=== PATIENT | female | born 1970 | race Caucasian/White ===

== ENCOUNTER → 2024-03-11 | Outpatient (CLI) | payer BC, SELFPAY | END | disposition home or self-care (01) | PROVIDERS: PCP Nurse Practitioner Family; Referring Provider Nurse Practitioner Family; Visit Provider Nurse Practitioner Family | DX: Z12.31 Encounter for screening mammogram for malignant neoplasm of breast (principal); R60.0 Localized edema; E04.9 Nontoxic goiter, unspecified | CPT/HCPCS: 76536; 76882; 77063; 77067 ==

== ENCOUNTER 2024-05-04 06:14 | Day surgery (SDC) | payer BC, SELFPAY ==
--- NOTE | 2024-05-01 21:57 | PAT.ANE_ITS ---
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 When Was Last Pacemaker Check QUESTION #4 FULL TEXT: You/Your Family Experience fever (hyperthermia) with Anesthesia Last Oral Intake Last Oral intake: Last Oral Intake NPO since Meds taken in AM with sips of water? Meds patient instructed to take am of surgery PONV PONV - bench patternmaker metal: PONV - bench patternmaker metal Female Yes 05/01/24 09:10 HX of Motion Sickness No 05/01/24 09:10 HX of N/V After Surgery No 05/01/24 09:10 Non-Smoker Yes 05/01/24 09:10 Duration of Surgery greater No 05/01/24 09:10 than 60 minutes Number of Risk Factors 2 05/01/24 09:10 PONV Score Moderate Risk 05/01/24 09:10 Height & Weight Height & Weight: Anesthesia: Height & Weight Height 5 ft 9 in 02/26/24 10:13 Respiratory Assessment Respiratory Assessment - bench patternmaker metal: Respiratory Tract Infection Hx - bench patternmaker metal Hx Respiratory Tract Infection No 05/01/24 09:10 STOP Sleep Apnea STOP Sleep Apnea - bench patternmaker metal: STOP Sleep Apnea - bench patternmaker metal Hx Hypertension Yes: NO MEDS FOR 3 YRS 05/01/24 09:10 Hx Sleep Apnea No 05/01/24 09:10 CPAP BIPAP Do you snore loudly (louder Yes 05/01/24 09:10 than talking or can be heard Do you often feel tired/ No 05/01/24 09:10 fatigued/ sleepy during daytime? Has anyone observed you stop No 05/01/24 09:10 breathing during sleep? STOP Results Positive 05/01/24 09:10 QUESTION #5 FULL TEXT : Do you snore loudly (louder than talking or can be heard through closed doors)? Tobacco Use History Tobacco Use History - bench patternmaker metal: Tobacco Use History - bench patternmaker metal Tobacco Use Smoking Status Never smoker 05/01/24 09:10 Hx Tobacco Use No 05/01/24 09:10 Years Smoking Packs Smoked per Day Smoking Cessation Date was within the last 15 years Hx Smoking Cessation Date Hx Smoking Cessation Counseling Hematologic Medial History Hematologic Hx - bench patternmaker metal: Hematologic Medical Hx - documentation coordinator Hx of Blood Transfusion No 05/01/24 09:10 Hx of Transfusion in last 3 No 05/01/24 09:10 Months Date of Last Transfusion (if within last 3 months) Ever experience any problems No 05/01/24 09:10 with transfusion(s)? Specify any problems Hx of Preganancy in last 3 No 05/01/24 09:10 Months Nurse Filling Out Transfusion DSCHRIBER 05/01/24 09:10 & Questions: Date: 05/01/24 05/01/24 09:10 Time: 09:12 05/01/24 09:10 Patient unable to answer at this time (ie. confused, unrespo /Reproduction History /Reproductive History - bench patternmaker metal: /Reproductive Hx- bench patternmaker metal Hx Now No 05/01/24 09:10 Gestational Age (in weeks): EDC: Hx Hx Para Hx Section SAB No 05/01/24 09:10 [facility] Medical History (Updated 05/01/24 @ 09:18 by Fiona Greene) Wears glasses Post-menopausal Anxiety Diabetes Arthritis High cholesterol Easy bruising Migraine headache Restless legs Non-smoker Shortness of breath on exertion History of edema History of stress test History of CHF (congestive heart failure) Hypertension Hx of cyst of breast Hyperlipidemia PCOS (polycystic ovarian syndrome) Thyroid goiter Asthma Depression Home Medications ?Medication ?Instructions ?Recorded ?Last Taken ?Type albuterol sulfate 90 mcg/actuation 2 puff inhalation Q4H PRN 02/26/24 Unknown History aerosol inhaler shortness of breath or wheezing furosemide 40 mg tablet (Lasix) 40 mg PO QDAY 02/26/24 Unknown History ibuprofen 200 mg tablet 400 mg PO BID 02/26/24 Unknown History ropinirole 1 mg tablet 1 mg PO BID 02/26/24 Unknown History sertraline 100 mg tablet (Zoloft) 150 mg PO QHS 02/26/24 Unknown History Allergy/AdvReac Type Severity Reaction Status Date / Time niacin Allergy Hives Verified 05/01/24 09:09 adhesive AdvReac Rash Verified 05/01/24 09:09 Family History (Updated 02/26/24 @ 10:07 by Margaret Spencer) Brother Stomach cancer Esophageal cancer Surgical History (Updated 05/01/24 @ 09:18 by Fiona Greene) Hx of oral surgery Hx of tonsillectomy Social History (Updated 02/26/24 @ 10:08 by Margaret Spencer) household members: other details: Roommate current occupational status: employed Smoking Status: Never smoker substance use type: does not use Audit: Pertinent Findings Pertinent Findings Stress test pertinent findings: April 27, 2020. Ejection fraction 70%. Normal left ventricular systolic function. Echo (EF%) pertinent findings: April 27, 2020. Dobutamine stress echo is normal. Ejection fraction is 70%. Normal left ventricular systolic function Recommendation Anesthesia Recommendation Anesthesia recommendation: OPTIMIZED for anesthesia
[2024-05-04] VITALS (7 sets, daily range): BP systolic 105–146; BP diastolic 70–89; PULSE 69–90; RESP 16; TEMP 36–37.1; O2SAT 93–97; BMI 43.5
--- NOTE | 2024-05-04 07:02 | PRE.ANES_ITS ---
ASA Classification* ASA Classification ASA Classification: 3 Assessment & Plan Anesthesia* Anesthesia Assessment Anesthesia Assessment: Discussed sedation and/or anesthesia options, risks, benefits, and alternatives with patient/parents/legal guardian/POA. Questions invited. The patient/parents/legal guardian/POA seems to understand and agrees to proceed with anesthesia plan. Reviewed the physical assessment, medical history, allergy history and patient home medications list prior to surgery/procedure/anesthetic and documented any changes. Performed airway and anesthesia risk assessments. 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 When Was Last Pacemaker Check QUESTION #4 FULL TEXT: You/Your Family Experience fever (hyperthermia) with Anesthesia Last Oral Intake Last Oral intake: Last Oral Intake NPO since 03:30 05/04/24 06:38 Meds taken in AM with sips of water? 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 Female Yes 05/01/24 09:10 HX of Motion Sickness No 05/01/24 09:10 HX of N/V After Surgery No 05/01/24 09:10 Non-Smoker Yes 05/01/24 09:10 Duration of Surgery greater No 05/01/24 09:10 than 60 minutes Number of Risk Factors 2 05/01/24 09:10 PONV Score Moderate Risk 05/01/24 09:10 Height & Weight Height & Weight: Anesthesia: Height & Weight Height 5 ft 9 in 05/04/24 06:38 Weight: 133.81 kg 05/04/24 06:38 Body Mass Index (BMI) 43.5 05/04/24 06:38 Respiratory Assessment Respiratory Assessment - bow making machine operator: Respiratory Tract Infection Hx - bow making machine operator Hx Respiratory Tract Infection No 05/01/24 09:10 STOP Sleep Apnea STOP Sleep Apnea - bow making machine operator: STOP Sleep Apnea - bow making machine operator Hx Hypertension Yes: NO MEDS FOR 3 YRS 05/01/24 09:10 Hx Sleep Apnea No 05/01/24 09:10 CPAP BIPAP Do you snore loudly (louder Yes 05/01/24 09:10 than talking or can be heard Do you often feel tired/ No 05/01/24 09:10 fatigued/ sleepy during daytime? Has anyone observed you stop No 05/01/24 09:10 breathing during sleep? STOP Results Positive 05/01/24 09:10 QUESTION #5 FULL TEXT : Do you snore loudly (louder than talking or can be heard through closed doors)? 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 Specify any problems Hx of Preganancy in last 3 No 05/01/24 09:10 Months Nurse Filling Out Transfusion DSCHRIBER 05/01/24 09:10 & Questions: Date: 05/01/24 05/01/24 09:10 Time: 09:12 05/01/24 09:10 Patient unable to answer at this time (ie. confused, unrespo /Reproduction History /Reproductive History - bow making machine operator: /Reproductive Hx- bow making machine operator Hx Now No 05/01/24 09:10 Gestational Age (in weeks): EDC: Hx Hx Para Hx Section SAB No 05/01/24 09:10 PFSH Medical History Wears glasses Post-menopausal Anxiety Diabetes Arthritis High cholesterol Easy bruising Migraine headache Restless legs Non-smoker Shortness of breath on exertion History of edema History of stress test History of CHF (congestive heart failure) Hypertension Hx of cyst of breast Hyperlipidemia PCOS (polycystic ovarian syndrome) Thyroid goiter Asthma Depression Home Medications ?Medication ?Instructions ?Recorded ?Last Taken ?Type albuterol sulfate 90 mcg/actuation 2 puff inhalation Q4H PRN 02/26/24 Unknown History aerosol inhaler shortness of breath or wheezing furosemide 40 mg tablet (Lasix) 40 mg PO QDAY 02/26/24 05/03/24 History ibuprofen 200 mg tablet 400 mg PO BID 02/26/24 Unknown History ropinirole 1 mg tablet 1 mg PO BID 02/26/24 Unknown History sertraline 100 mg tablet (Zoloft) 150 mg PO QHS 02/26/24 Unknown History Allergy/AdvReac Type Severity Reaction Status Date / Time niacin Allergy Hives Verified 05/04/24 06:38 adhesive AdvReac Rash Verified 05/04/24 06:38 Family History Brother Stomach cancer Esophageal cancer Surgical History Hx of oral surgery Hx of tonsillectomy Social History household members: other details: Roommate current occupational status: employed Smoking Status: Never smoker substance use type: does not use Review of Systems (Anesthesia) ROS Narrative System reviewed and no additional complaints, except as documented.
--- NOTE | 2024-05-04 07:14 | HP.PCM_ITS ---
[facility] - General General Date of Admission: 05/04/24 Date of Service: 05/04/24 Chief Complaint: Screening colonoscopy [facility] Narrative MARYBEL MCKINNEY, is a 54 F who presents today for screening colonoscopy. She is never had a colonoscopy in the past. She does have a family history of stomach cancer. She has no personal history of any cancer. She has no current complaints at this time. REPLACED BY [facility] Medical History Wears glasses Post-menopausal Anxiety Diabetes Arthritis High cholesterol Easy bruising Migraine headache Restless legs Non-smoker Shortness of breath on exertion History of edema History of stress test History of CHF (congestive heart failure) Hypertension Hx of cyst of breast Hyperlipidemia PCOS (polycystic ovarian syndrome) Thyroid goiter Asthma Depression Home Medications ?Medication ?Instructions ?Recorded ?Last Taken ?Type albuterol sulfate 90 mcg/actuation 2 puff inhalation Q4H PRN 02/26/24 Unknown History aerosol inhaler shortness of breath or wheezing furosemide 40 mg tablet (Lasix) 40 mg PO QDAY 02/26/24 05/03/24 History ibuprofen 200 mg tablet 400 mg PO BID 02/26/24 Unknown History ropinirole 1 mg tablet 1 mg PO BID 02/26/24 Unknown History sertraline 100 mg tablet (Zoloft) 150 mg PO QHS 02/26/24 Unknown History Allergy/AdvReac Type Severity Reaction Status Date / Time niacin Allergy Hives Verified 05/04/24 06:38 adhesive AdvReac Rash Verified 05/04/24 06:38 Family History Brother Stomach cancer Esophageal cancer Surgical History Hx of oral surgery Hx of tonsillectomy Social History household members: other details: Roommate current occupational status: employed Smoking Status: Never smoker substance use type: does not use ROS Constitutional Constitutional: Denies fatigue, fever(s), poor appetite, weight gain or weight loss Gastrointestinal Gastrointestinal: Denies belching, bloating, change in bowel habits, change in stool character, chewing difficulty, coffee ground emesis, constipation, cramping, diarrhea, dyspepsia, dysphagia, early satiety, excessive flatus, fecal incontinence, heartburn, hematemesis, hematochezia, hemorrhoids, loose stools, melena, nausea, odynophagia, rectal bleeding, tenesmus, vomiting or weight changes Vital Signs Vital Signs Vital Signs: 05/04/24 06:38 05/04/24 06:38 05/04/24 07:02 Temperature 97 F L 97 F L Temperature Source Temporal Pulse Rate 90 90 Respiratory Rate 16 16 Respiratory Pattern Normal Blood Pressure 146/89 H 146/89 H Blood Pressure Mean 108 Blood Pressure Source Monitor Blood Pressure Position Semi-Fowlers Blood Pressure Location Right Arm Pulse Ox 95 95 Oxygen Delivery Method Room Air Weight Weight: 295 lb Body Mass Index (BMI) 43.5 Physical Exam Const alert, oriented x3, no apparent distress and healthy appearing General Appearance: cooperative GI normal to inspection, nondistended, normoactive bowel sounds, soft to palpation, non-tender and non-distended Percussion: normal to percussion Rectal Exam: deferred Assessment & Plan Assessment/Plan (1) Encounter for screening for malignant neoplasm of colon: PLAN: She was explained alternatives, benefits, risk including not withstanding bleeding, infection, sepsis, perforation, need for emergent urgent . She will have an ASA of 3.
[2024-05-04 07:22] LABS: Bedside Glucose 135 mg/dL (74-106)
--- NOTE | 2024-05-04 07:30 | COLBX_PTH ---
PATIENT: MARYBEL MCKINNEY LOC: EN U#:[id number] AGE/SX: 54/F ROOM: RE05/04/[address]: Dr. Jose Abdi DO : 1970 BED: DIS: 05/04/2024 SPEC #: [id number] RECD: 05/04/24 10:05 STATUS: SUGEY KEN #: [id number] CARA: 05/04/24 07:[address]: Jose Abdi DEPT: SURGICAL PATHOLOGY RECD BY: Shona Masters ENTERED: 05/04/24 10:47 SP TYPE: COLON BX OTHR DR: Lavonne Olsen, AD COMPOSITOR-C Tissues: A - COLON BIOPSY B - Transverse colon C - SPLENIC FLEXURE Procedures: Surgery Specimen Level IV HEADER OPERATION: Colonoscopy with polypectomy, biopsy PRE-OP DIAGNOSIS: Encounter for screening for neoplasm of colon TISSUE SUBMITTED: A- Hepatic flexure polyp, B- Transverse colon polyp, C- Splenic flexure polyp MICROSCOPIC DIAGNOSIS A. Hepatic flexure polyp, polypectomy: Tubular adenoma. B. Transverse colon polyp, polypectomy: Fragments of tubular adenoma. C. Splenic flexure polyp, polypectomy: Hyperplastic polyp. 05/05/2024 MICROSCOPIC DESCRIPTION Slides are reviewed. GROSS DESCRIPTION A. Received in fixative is one container labeled with the patient's name and designated Hepatic flexure polyp. The specimen consists of one irregular fragment of light barber soft tissue that measures 0.5 x 0.6 x 0.3 cm. The specimen is totally submitted in one cassette. B. Received in fixative is one container labeled with the patient's name and designated Transverse colon polyp. The specimen consists of multiple irregular fragments of light barber soft tissue that in aggregate measure 0.5 x 0.3 x 0.1 cm. The specimen is totally submitted in one cassette. C. Received in fixative is one container labeled with the patient's name and designated Splenic flexure polyp. The specimen consists of two irregular fragments of light barber soft tissue that in aggregate measure 0.5 x 0.4 x 0.2 cm. The specimen is totally submitted in one cassette. 05/04/2024 TC:1 CPT:62804k3
--- NOTE | 2024-05-04 08:24 | OP.COLON_ITS ---
Patient Name: Anaid Nicolas Procedure Date: 05/04/2024 7:53 AM Date of : 1970 Age: 54 Procedure: Colonoscopy Indications: Screening for colorectal malignant neoplasm Providers: Jose Abdi DO Referring MD: Jose Abdi DO Medicines: Monitored Anesthesia Care Patient Profile: This is a 54 year old female. Refer to note in patient chart for documentation of history and physical. Last Colonoscopy: none. The patient's first colonoscopy is today. Complications: No immediate complications. Procedure: Pre-Anesthesia Assessment: - Prior to the procedure, a History and Physical was performed, and patient medications and allergies were reviewed. The patient is competent. The risks and benefits of the procedure and the sedation options and risks were discussed with the patient. All questions were answered and informed consent was obtained. Patient identification and proposed procedure were verified by the physician in the pre-procedure area. Mental Status Examination: alert and oriented. Airway Examination: normal oropharyngeal airway and neck mobility. Respiratory Examination: clear to auscultation. CV Examination: normal. Prophylactic Antibiotics: The patient does not require prophylactic antibiotics. Prior Anticoagulants: The patient has taken no anticoagulant or antiplatelet agents except for NSAID medication. ASA Grade Assessment: II - A patient with mild systemic disease. After reviewing the risks and benefits, the patient was deemed in satisfactory condition to undergo the procedure. The anesthesia plan was to use monitored anesthesia care (MAC). Immediately prior to administration of medications, the patient was re-assessed for adequacy to receive sedatives. The heart rate, respiratory rate, oxygen saturations, blood pressure, adequacy of pulmonary ventilation, and response to care were monitored throughout the procedure. The physical status of the patient was re-assessed after the procedure. After I obtained informed consent, the scope was passed under direct vision. Throughout the procedure, the patient's blood pressure, pulse, and oxygen saturations were monitored continuously. The pediatric colonoscope was introduced through the anus and advanced to the cecum, identified by appendiceal orifice and ileocecal valve. The colonoscopy was performed without difficulty. The patient tolerated the procedure well. The quality of the bowel preparation was adequate. The ileocecal valve, appendiceal orifice, and rectum were photographed. Scope In: 7:59:51 AM Scope Withdrawal Time 0 hours 9 minutes 37 seconds Scope Out: 8:19:38 AM Total Procedure Duration Time 0 hours 19 minutes 47 seconds Findings: The perianal and digital rectal examinations were normal. Multiple small-mouthed diverticula were found in the recto-sigmoid colon, sigmoid colon, descending colon and splenic flexure. Two sessile polyps were found in the transverse colon and hepatic flexure. The polyps were 1 to 2 mm in size. These polyps were removed with a cold snare. Resection and retrieval were complete. Verification of patient identification for the specimen was done. Estimated blood loss was minimal. A 4 mm polyp was found in the splenic flexure. The polyp was sessile. The polyp was removed with a cold biopsy forceps. Resection and retrieval were complete. Verification of patient identification for the specimen was done. Estimated blood loss was minimal. The exam was otherwise without abnormality on direct and retroflexion views. Impression: - Diverticulosis in the recto-sigmoid colon, in the sigmoid colon, in the descending colon and at the splenic flexure. - Two 1 to 2 mm polyps in the transverse colon and at the hepatic flexure, removed with a cold snare. Resected and retrieved. - One 4 mm polyp at the splenic flexure, removed with a cold biopsy forceps. Resected and retrieved. - The examination was otherwise normal on direct and retroflexion views. Recommendation: - Discharge patient to home. - Resume previous diet. - Continue present medications. - Await pathology results. - Repeat colonoscopy in 5 years for surveillance. Procedure Code(s): --- Professional --- 35398, Colonoscopy, flexible; with removal of tumor(s), polyp(s), or other lesion(s) by snare technique 85145, 59, Colonoscopy, flexible; with biopsy, single or multiple CPT copyright 2021 [employer]. All rights reserved. The codes documented in this report are preliminary and upon certified medical records coder review may be revised to meet current compliance requirements. Jose Abdi DO 05/04/2024 8:23:51 AM This report has been signed electronically. Number of Addenda: 0 Note Initiated On: 05/04/2024 7:53 AM
--- NOTE | 2024-05-04 08:24 | OP.CCLET_ITS ---
05/04/2024 Taniya Hinton Re : Colonoscopy procedure for Anaid Nicolas Dear Raúl This procedure was performed on Saturday, May 04, 2024. My impressions and recommendations are as follows: Impressions : - Diverticulosis in the recto-sigmoid colon, in the sigmoid colon, in the descending colon and at the splenic flexure. - Two 1 to 2 mm polyps in the transverse colon and at the hepatic flexure, removed with a cold snare. Resected and retrieved. - One 4 mm polyp at the splenic flexure, removed with a cold biopsy forceps. Resected and retrieved. - The examination was otherwise normal on direct and retroflexion views. Recommendations : - Discharge patient to home. - Resume previous diet. - Continue present medications. - Await pathology results. - Repeat colonoscopy in 5 years for surveillance. My findings are described in the full procedure note, which is enclosed. If I can be of further assistance, please feel free to contact me at . Sincerely, Jose Abdi, 05/04/2024 8:23:51 AM This report has been signed electronically.
--- NOTE | 2024-05-04 08:29 | PCM.POST.ANE ---
Anesthesia: Postop Eval I Current Vital Signs Temperature: 98.7 F Pulse Rate: 74 Blood Pressure: 107/87 Respiratory Rate: 16 Pulse Ox: 97 Oxygen Delivery Method: Room Air Assessment Airway patent: Yes Spontaneous unlabored respirations: Yes Mental status: Awake and Calm nausea: No Vomiting: No Anesthesia Complication: No Fluid Hydration Crystalloid volume administer (ml): 75 Total IV fluid infused: 75 Progress Note Anesthesia document: Postop Eval 1 completed: Yes
--- NOTE | 2024-05-04 08:50 | PCM.POSTANE2 ---
Anesthesia Postop Eval I Sum Postop Eval Completion status Anesthesia document: Postop Eval 1 completed: Yes Anesthesia Postop Eval I Summary Anesthesia Postop Eval I Summary: Anesthesia Postop Eval I: Assessment Summary Airway patent Yes 05/04/24 08:30 [email or web address] Spontaneous unlabored Yes 05/04/24 08:30 [email or web address] respirations Mental status Awake,Calm 05/04/24 08:30 [email or web address] nausea No 05/04/24 08:30 [email or web address] Vomiting No 05/04/24 08:30 [email or web address] Anesthesia Postop Eval I: Fluid Summary Crystalloid volume administer 75 05/04/24 08:30 [email or web address] (ml) Colloids volume administered ( ml) Blood Product volume administered (ml) Total IV fluid infused 75 05/04/24 08:30 [email or web address] Anesthesia Postop Eval I: Summary Notes Anesthesia Complication No 05/04/24 08:30 [email or web address] Anesthesia Complication Comment: Post-operative progress note Anesthesia: Postop Eval II Evaluation Mental status: Awake Pain Level: 0 nausea: No Vomiting: No
== END 2024-05-04 09:13 | disposition home or self-care (01) ==
LOC: EN 06:15 → AC 06:16
PROVIDERS: PCP Nurse Practitioner Family; Referring Provider Nurse Practitioner Family; Visit Provider Internal Medicine Gastroenterology
PROC: 0DJD8ZZ Inspection of Lower Intestinal Tract, Via Natural or Artificial Opening Endoscopic (ICD-10-PCS; CPT 45378; principal; 2024-05-04 07:25)
DX: Z12.11 Encounter for screening for malignant neoplasm of colon (principal); I11.0 Hypertensive heart disease with heart failure; I50.9 Heart failure, unspecified; E11.9 Type 2 diabetes mellitus without complications; D12.3 Benign neoplasm of transverse colon; Z80.0 Family history of malignant neoplasm of digestive organs; E78.00 Pure hypercholesterolemia, unspecified; K57.30 Diverticulosis of large intestine without perforation or abscess without bleeding; J45.909 Unspecified asthma, uncomplicated; Z79.899 Other long term (current) drug therapy
CPT/HCPCS: 45385; 45380

== ENCOUNTER 2024-07-23 14:28 | Inpatient (IN) | payer BC, SELFPAY ==
[2024-07-23] VITALS (7 sets, daily range): BP systolic 111–152; BP diastolic 61–76; PULSE 103–117; RESP 18–26; TEMP 37.6–39.2; O2SAT 95–99; BMI 46.3; BMI 45.6
--- NOTE | 2024-07-23 15:01 | EDS_ITS ---
HPI History of Present Illness Chief Complaint: Wound Narrative Narrative: Patient is a 54-year-old female with past medical history diabetes, hypercholesteremia, CHF, PCOS, depression who presented to the emergency department with complaint of lower abdominal wound on the left side. States that on Saturday she noted a small area of discomfort and swelling she states that on Saturday she was able to squeeze it and obtain a small amount of pus however she states that by today her symptoms have progressed and noted that she is in extreme pain. Patient states that she had a similar instance happen on her right shoulder where she went to [facility] for this she states and states that they drained this in the emergency department gave her dose of IV antibiotics and sent her on Keflex Bactrim and it healed on its own from that point. Patient states that she has no known injuries to this area states that she does not give herself injections or any thing of this nature. [facility] Medical History Congestive heart failure (CHF) Wears glasses Post-menopausal Anxiety Diabetes Arthritis High cholesterol Easy bruising Migraine headache Restless legs Non-smoker Shortness of breath on exertion History of edema History of stress test History of CHF (congestive heart failure) Hypertension Hx of cyst of breast Hyperlipidemia PCOS (polycystic ovarian syndrome) Thyroid goiter Asthma Depression Home Medications ?Medication ?Instructions ?Recorded ?Last Taken ?Type albuterol sulfate 90 mcg/actuation 2 puff inhalation Q 4H PRN 02/26/24 07/22/24 History aerosol inhaler shortness of breath or wheez ing furosemide 40 mg tablet (Lasix) 40 mg PO QDAY 02/26/24 07/23/24 History ibuprofen 200 mg tablet 400 mg PO BID 02/26/2407/23 History ropinirole 1 mg tablet 1 mg PO BID 02/26/24 Unknown History sertraline 100 mg tablet (Zoloft) 150 mg PO QHS 07/22/24 History Allergy/AdvReac Type Severity Reaction Status Date / Time niacin Allergy Hives Verified 07/23/24 15:44 adhesive AdvReac Rash Verified 07/23/24 15:44 Family History (Updated 07/23/24 @ 20:[address] Denice Moreno MD) Brother Stomach cancer Esophageal cancer Mother Heart disease CAD (coronary artery disease) Kidney disease Father CAD (coronary artery disease) Heart disease Hypertension Myocardial infarction Ruptured abdominal aortic aneurysm Other Diabetes Surgical History Hx of oral surgery Hx of tonsillectomy Social History (Updated 07/23/24 @ 20:[address] Denice Moreno MD) household members: other details: Roommate current occupational status: employed Smoking Status: Never smoker alcohol intake: never substance use type: does not use ROS ROS ED ROS Narrative Constitutional: Denies fevers, chills, headaches, lightness, dizziness Abdomen: Complains of abdominal discomfort near the wound and nausea denies vomiting or diarrhea : Denies urinary symptoms Neurological: Denies numbness, weakness, tingling Skin: Complains of abdominal wound in the left lower abdomen EXAM Physical Exam Narrative Exam Narrative: General: Patient was lying in bed rest comfortably did not appear to be acute distress Head: Atraumatic, normocephalic Eyes: PERRL bilaterally, EOMI bilateral, no conjunctival injection noted Neck: Soft, supple, trachea midline Cardiovascular: Patient tachycardic with regular rhythm no murmurs gallops rubs noted Respiratory: Clear to auscultation bilaterally Abdomen: Tenderness to palpation in the left lower quadrant where the wound is noted, no rebound or guarding on exam this does not extend down into her groin region no concern for Allen's gangrene Extremities: +5/5 strength of the bilateral upper and lower extremities Neurological: Patient follow commands that she was at [facility] year is 2024 Skin: Patient has surrounding erythema noted in the left lower quadrant no purulent drainage noted in the center of the wound is a small black dot. Const Vital Signs: 07/23/24 14:29 07/23/24 15:41 07/23/24 16:25 Temperature 99.6 F H 100.2 F H 100.9 F H Temperature Source Temporal Oral Oral Pulse Rate 117 H 115 H 104 H Respiratory Rate 24 H 24 H 24 H Blood Pressure 152/71 H 144/76 H 145/70 H Blood Pressure Mean 98 98 95 Pulse Ox 99 95 98 Oxygen Delivery Method Room Air Room Air 07/23/24 18:23 Temperature 102.5 F H Temperature Source Oral Pulse Rate 109 H Respiratory Rate 24 H Blood Pressure 112/75 Blood Pressure Mean 87 Pulse Ox 97 Oxygen Delivery Method Room Air MDM MDM MDM Narrative Medical decision making narrative: Patient is a 54-year-old female who presented to the emergency department with a chief complaint of left lower abdominal wound. On the differential diagnose includes but not limited to abscess, cellulitis. Patient be given 30 cc/kg bolus of IV fluids however this will be based on ideal body weight as she has a BMI of greater than 30 this was ordered at 1459. Patient be given vancomycin and Zosyn. This was ordered at 1459. .. Patient CBC was reviewed and was significant for leukocytosis of 20,000, hemoglobin stable 13, platelet count normal at 255. Patient INR is 1, PT of 13.8. Patient sodium normal 136, potassium normal 4.1, creatinine normal at 0.83 patient lactic acid elevated 2.1, AST and ALT were 17 and 13 respectively. Patient's urinalysis was reviewed and a microscopic exam is pending however low suspicion for infection based on result thus far. Patient CT abdomen pelvis with IV contrast showed cutaneous assume continuous thickening and stranding along the visualized left lower abdominal wall compatible with cellulitis no abscess noted. Mild hepatomegaly with diffuse hepatic steatosis moderate splenomegaly noted. Simple appearing bilateral ovarian cysts recommended pelvic ultrasound in 6 to 8 weeks to evaluate for stability/resolution. On reevaluation the patient she is still tachycardic she is now febrile which she will be given a gram of Tylenol for. Given her history also diabetes do believe the patient will warrant admission for IV antibiotics will discuss case with hospitalist. Patient test with hospitalist Dr. Moreno who accept patient for admission. Patient was notified is agreeable this plan all course concerns answered. Lab Data Labs: Laboratory Results - last 24 hr 07/23/24 07/23/24 15:26 16:05 WBC 20.7 H RBC 4.65 Hgb 13.0 Hct 37.7 MCV 81.1 MCH 28.0 MCHC 34.5 RDW Std Deviation 44.2 H RDW Coeff of Sia 15.0 H Plt Count 255 MPV 10.0 Immature Gran % (Auto) 0.700 Neut % (Auto) 82.5 H Lymph % (Auto) 6.6 L [place] % (Auto) 8.1 Eos % (Auto) 1.6 Baso % (Auto) 0.5 Absolute Neuts (auto) 17.0 H Absolute Lymphs (auto) 1.36 Nucleated RBC % 0 [address] Review May foll Atypical Lymphocytes 2+ PT 13.8 INR 1.0 APTT 38.0 H Sodium 136 Potassium 4.1 Chloride 99 Carbon Dioxide 22.6 Anion Gap 14 BUN 12 Creatinine 0.83 Estim Creat Clear Calc 115.92 Est GFR (MDRD) Non-Af 85 BUN/Creatinine Ratio 13.9 Glucose 135 H Lactic Acid 2.1 H Calcium 9.4 Total Bilirubin 0.46 AST 17 ALT 13 Alkaline Phosphatase 97 Total Protein 7.7 Albumin 4.3 Globulin 3.4 Albumin/Globulin Ratio 1.2 Urine Color Yellow Urine Clarity Sl. Cloudy Urine pH 7.0 Ur Specific [place] 1.005 Urine Protein 30 H Urine Glucose (UA) Normal Urine Ketones Negative Urine Occult Blood Negative Urine Nitrite Negative Urine Bilirubin Negative Urine Urobilinogen Normal Ur Leukocyte Esterase 25 H Urine RBC 0-5 SEEN Urine WBC 5-10 SEEN Ur Squamous Epith Cells 0-5 SEEN Urine Bacteria 1+ Urine Mucus 0 SEEN Radiography Diagnostic Testing: Clinical Impression(s) from Imaging Studies Abdomen/Pelvis CT 07/23/24 16:40 IMPRESSION: 1. Cutaneous and subcutaneous thickening and stranding along the visualized left lower abdominal wall, compatible with cellulitis. No abscess within the visualized field of view. 2. Mild hepatomegaly with diffuse hepatic steatosis. 3. Moderate splenomegaly. 4. Simple appearing bilateral ovarian cysts. Recommend pelvic ultrasound in 6-8 weeks to evaluate for stability/resolution. Reading Location: [id number] Discharge Plan Dx/Rx/DC Orders Clinical Impression: Abdominal wall cellulitis, Acidosis, lactic, History of diabetes mellitus Disposition Disposition: Acute Care [facility] Discharge Date/Time: 07/23/24 19:51
[2024-07-23] MEDS: 0.9% Normal Saline (1000mL) 1,000 ML 999 ML IV ×3 (15:33→17:35)
[2024-07-23] MEDS: Ondansetron 4 MG/2 ML Vial IV (15:33)
[2024-07-23] MEDS: Morphine 4 MG/ML Syringe IV (15:34)
[2024-07-23] MEDS: Piperacil/Tazobactam 4.5 GM in 0.9% Normal Saline (100mL MB+) 100 ML IV (15:36)
[2024-07-23 15:38] LABS: Absolute Lymphocyte Count 1.36 X10^3/uL (0.83-4.51); Basophil% 0.5 % (0-1); Eosinophil# 0.34 X10^3/uL; Eosinophils% 1.6 % (0-5); Hematocrit 37.7 % (37-47); Lymphocyte # 1.36 X10^3/ul (0.83-4.51); Lymphocyte % 6.6 % (19-41); Mean Corp Hgb Conc 34.5 g/dL (32-36); Mean Corpuscular Volume 81.1 fL (81-99); Monocyte# 1.67 X10^3/uL; Monocyte% 8.1 % (0-10); NRBC Flagged by Analyzer 0 % (0-5); Neutrophil # 17.03 X10^3/uL (2.7-7.7); Neutrophil % 82.5 % (47-70); POSITIVE DIFFERENTIAL YES; Platelet Count 255 K/mm3 (150-450); RBC Distribution Width SD 44.2 fl (35.1-43.9); Red Blood Count 4.65 M/mm3 (4.2-5.4); White Blood Count 20.7 K/mm3 (4.4-11.0)
[2024-07-23 15:48] LABS: Prothrombin Time (Protime)PT. 13.8 SECONDS (11.7-14.9)
[2024-07-23 16:00] LABS: Differential Indicated SCAN CRITERIA MET
[2024-07-23 16:15] LABS: ALB/GLOB Ratio 1.2 RATIO (0.9-2.4); AST(SGOT) 17 U/L (<=31); Alanine Aminotransfer ALT/SGPT 13 U/L (<=34); Albumin, Serum 4.3 g/dL (3.5-5.0); Alkaline Phosphatase 97 U/L (35-104); Anion Gap 14 (5-15); BUN 12 mg/dL (4-19); BUN/Creat Ratio 13.9 RATIO (10-20); Calcium,Total 9.4 mg/dL (7.6-11.0); Carbon Dioxide 22.6 mmol/L (21.0-32.0); Chloride 99 mmol/L (98-108); Creatinine, Serum 0.83 mg/dL (0.70-1.20); EST Glomerular Filtration Rate 85 (>60); Estimated Creatinine Clearance 115.92 ml/min (50-250); Globulin 3.4 g/dL (2.2-4.2); Glucose 135 mg/dL (70-99); Potassium 4.1 mmol/L (3.3-5.1); Protein, Total 7.7 g/dL (5.9-8.4); Sodium Level 136 mmol/L (133-145); Total Bilirubin 0.46 mg/dL (0.00-1.30)
[2024-07-23 16:17] LABS: Lactic Acid 2.1 mmol/L (0.0-2.0)
[2024-07-23] MEDS: Vancomycin HCl 2,000 MG in 0.9% Normal Saline (500mL Bag) 500 ML 250 MG IV (16:19)
--- NOTE | 2024-07-23 16:40 | CT_ITS ---
PROCEDURE: ABDOMEN/PELVIS W IV CONT ONLY 07/23/2024 REASON FOR EXAM: 54-year-old female, LEFT LOWER ABD WOUND TECHNIQUE: Abdomen and pelvis CT with intravenous contrast. Coronal and Sagittal reconstruction series were provided. Delayed phase imaging was also obtained. PATIENT PREPARATION: Per protocol ORAL CONTRAST TYPE: None. CONTRAST: Isovue 370 VOLUME: 100 mL One or more dose reduction techniques were used (e.g., Automated exposure control, adjustment of the mA and/or kV according to patient size, use of iterative reconstruction technique. RADIATION DOSE SUMMARY: CTDlvol: 60 mGy DLP: 2400 mGycm COMPARISON: None. FINDINGS: Lung bases: The lung bases are clear. The heart is normal in size. Liver: Mild hepatomegaly with diffuse hepatic steatosis. The major portal veins are patent. No biliary ductal dilation. Gallbladder: No radiopaque stones within the gallbladder. Spleen: Moderate splenomegaly measuring 17.3 cm. Pancreas: Unremarkable. Adrenals: No adrenal mass. Kidneys: No hydronephrosis or nephrolithiasis. Contrast opacifies the bilateral renal collecting systems and urinary bladder on delayed imaging. Bladder: Moderately distended and unremarkable. Reproductive Organs: Simple appearing cyst within the right ovary measuring 5.8 cm. Additional smaller bilateral ovarian cysts. The uterus is unremarkable. Bowel: The bowel loops are normal in caliber. No ascites or pneumoperitoneum. Normal appendix. Lymph nodes: No suspicious lymph node enlargement. Vasculature: The abdominal aorta and IVC are normal. Bones/soft tissues: The left abdominal wall is not completely included in the field of view due to body habitus. Cutaneous and subcutaneous thickening and stranding within the ventral left lower abdominal wall without discrete enhancing fluid collection. Thoracolumbar spondylosis. No aggressive osseous lesions. CT/Abdomen/Pelvis W IV Cont ONLY IMPRESSION: 1. Cutaneous and subcutaneous thickening and stranding along the visualized lef t lower abdominal wall, compatible with cellulitis. No abscess within the visualized field of view. 2. Mild hepatomegaly with diffuse hepatic steatosis. 3. Moderate splenomegaly. 4. Simple appearing bilateral ovarian cysts. Recommend pelvic ultrasound in 6- 8 weeks to evaluate for stability/resolution. Reading Location: [id number]
[2024-07-23 17:08] LABS: Atypical Lymphocyte 2+ %; Pathologist Review May foll
[2024-07-23 17:18] LABS: Mucous, Urine 0 SEEN /hpf (<or=2+)
[2024-07-23 17:30] LABS: Color, Urine Yellow (Yellow); Glucose, Dipstick Normal (Normal); Ketone-Dipstick Negative (Negative); Leukocyte Esterase-Dipstick 25 /ul (Negative); Nitrite-Dipstick Negative (Negative); Occult Blood-Urine Negative /ul (Negative); Protein-Dipstick 30 mg/dl (Negative); Specific Gravity, Urine 1.005 (1.002-1.030); Urine Bilirubin Dipstick Negative (Negative); Urine Clarity Sl. Cloudy (Clear); Urine Urobilinogen Normal (Normal)
[2024-07-23] MEDS: Acetaminophen 500 MG Tablet 1000 MG PO (18:22)
[2024-07-23 18:26] LABS: Bacteria 1+ /hpf (None Seen); Squamous Epithelial Cells - UA 0-5 SEEN /hpf (5-10)
[2024-07-23 18:27] LABS: Red Blood Cells-Urine 0-5 SEEN /hpf (0-5); White Blood Cells 5-10 SEEN /hpf (0-5)
--- NOTE | 2024-07-23 19:13 | ED.RN ---
PT FLAGGED SEPSIS BASED ON HER WBC, TMP, HR, AND RR, AND LACTIC BEING 2.1; PT NEVER TRIGGERED FOR FLUID RESUSCITATION UNDER CHECK-LIST. DR DEXTER ORDERED 2,500 ML FOR TOTAL VOLUME. PT RECEIVED FLUIDS.
--- NOTE | 2024-07-23 19:15 | PCM.HP.STD ---
HPI - General General Date of Admission: 07/23/24 Date of Service: 07/23/24 Chief Complaint: LLQ redness, pain, N/F/C, headaches. HPI Narrative The patient is a 54 y/o F w/ PMHx: Untreated Diabetes mellitus type II (noted stopped her medications), Morbid obesity, HTN, HLD, Anxiety and Depression, RLS, History of frequent hidradenitis, cyst requiring I&D who presents to the [facility] ED on 07/23/24 with history of onset left lower abdominal quadrant small red bump starting on the Saturday prior to presentation progressively worsening with increasing surrounding redness and tenderness to palpation, warm to touch as well as onset fever, chills, nausea without emesis, decreased appetite and headache with inability to adequately control her fever and given worsening appearance prompted eventual ED evaluation to be cautious. Workup in the ED included T99.6, heart rate 117, BP 152/71, respiratory rate 24, 99% on room air with Tmax in the ED 102.5, most currently T100.9, heart rate 103, BP 111/72, respiratory rate 26, 98% on room air, CBC with WBC 20.7, he 1 13, platelet 255 with left shift, unremarkable coags, CMP with glucose 135 otherwise not marked appearing, lactic acid minimally elevated 2.1 with repeat 1.3, urinalysis not marked appearing, CT abdomen and pelvis with IV contrast only with cutaneous and subcutaneous thickening and stranding along the visualized left lower abdominal wall compatible with cellulitis with no visualized abscess. In the ED patient administered 30 cc/kg based on ideal body weight totaling 2500 cc, in addition administered a Tylenol 1000 mg p.o. x 1, morphine 4 mg IV x 1, Zofran 4 mg IV x 1, IV vancomycin and Zosyn therapy. [facility] Medical History Congestive heart failure (CHF) Wears glasses Post-menopausal Anxiety Diabetes Arthritis High cholesterol Easy bruising Migraine headache Restless legs Non-smoker Shortness of breath on exertion History of edema History of stress test History of CHF (congestive heart failure) Hypertension Hx of cyst of breast Hyperlipidemia PCOS (polycystic ovarian syndrome) Thyroid goiter Asthma Depression Home Medications ?Medication ?Instructions ?Recorded ?Last Taken ?Type albuterol sulfate 90 mcg/actuation 2 puff inhalation Q4H PRN 02/26/24 07/22/24 History aerosol inhaler shortness of breath or wheezing furosemide 40 mg tablet (Lasix) 40 mg PO QDAY 02/26/24 07/23/24 History ibuprofen 200 mg tablet 400 mg PO BID 02/26/24 07/23/24 History ropinirole 1 mg tablet 1 mg PO BID 02/26/24 Unknown History sertraline 100 mg tablet (Zoloft) 150 mg PO QHS 02/26/24 07/22/24 History Allergy/AdvReac Type Severity Reaction Status Date / Time niacin Allergy Hives Verified 07/23/24 15:44 adhesive AdvReac Rash Verified 07/23/24 15:44 Family History (Updated 07/23/24 @ 20:[address] Denice Moreno MD) Brother Stomach cancer Esophageal cancer Mother Heart disease CAD (coronary artery disease) Kidney disease Father CAD (coronary artery disease) Heart disease Hypertension Myocardial infarction Ruptured abdominal aortic aneurysm Other Diabetes Surgical History Hx of oral surgery Hx of tonsillectomy Social History (Updated 07/23/24 @ 20:[address] Denice Moreno MD) household members: other details: Roommate current occupational status: employed Smoking Status: Never smoker alcohol intake: never substance use type: does not use ROS ROS Narrative Admission Review of Systems: CONSTITUTIONAL: No weight loss, + fever, chills, weakness or fatigue. HEENT: + headache. Eyes: No visual loss, blurred vision, double vision or yellow sclerae. Ears, Nose, Throat: No hearing loss, sneezing, congestion, runny nose or sore throat. SKIN: No rash or itching, lesions, wounds except + notable left lower quadrant small region of potentially folliculitis with small tiny eschar with surrounding periwound erythema, induration with no fluctuance, tenderness palpation, warm to touch. CARDIOVASCULAR: No chest pain, chest pressure or chest discomfort, palpitations, edema, orthopnea, syncopal events. RESPIRATORY: No shortness of breath, cough or sputum, wheezing, hemoptysis. GASTROINTESTINAL: + Anorexia/decreased appetite, nausea. No vomiting, diarrhea, abdominal pain, melena, BRBPR. GENITOURINARY: No dysuria, frequency, urgency or retention. NEUROLOGICAL: + Headache. Dizziness, syncope, paralysis, ataxia, numbness or tingling in the extremities, focal weakness, change in bowel or bladder control, seizure. MUSCULOSKELETAL: + muscle, back pain, joint pain or stiffness. HEMATOLOGIC: No anemia, bleeding or bruising. LYMPHATICS: No enlarged nodes. No history of splenectomy. PSYCHIATRIC: + History of anxiety and depression. ENDOCRINOLOGIC: + reports of sweating, cold or heat intolerance. No polyuria or polydipsia. ALLERGIES: + Chart reported history of asthma. Vital Signs Vital Signs Vital Signs: 07/23/24 14:29 07/23/24 15:41 07/23/24 16:25 Temperature 99.6 F H 100.2 F H 100.9 F H Temperature Source Temporal Oral Oral Pulse Rate 117 H 115 H 104 H Respiratory Rate 24 H 24 H 24 H Blood Pressure 152/71 H 144/76 H 145/70 H Blood Pressure Mean 98 98 95 Pulse Ox 99 95 98 Oxygen Delivery Method Room Air Room Air 07/23/24 18:23 Temperature 102.5 F H Temperature Source Oral Pulse Rate 109 H Respiratory Rate 24 H Blood Pressure 112/75 Blood Pressure Mean 87 Pulse Ox 97 Oxygen Delivery Method Room Air Weight Weight: 305 lb Body Mass Index (BMI) 46.3 Physical Exam Narrative Physical Examination: General: Awake, alert, oriented x 3 and cooperative, seated upright in the ED bed, more well-appearing than her labs and vitals, notes still tenderness palpation left lower quadrant and sensation of feeling warm. Skin: Normal color, normal turgor, no icterus, no cyanosis except left lower quadrant with small less than dime sized region of potentially would have been folliculitis with small tiny eschar with periwound erythema, induration, warmth to touch. HEENT: AT/NC, EOMI, PERRLA, MMM, no carotid bruits or JVD noted; however, thickened neck makes evaluation difficult. Lungs: Mildly diminished, distant, likely secondary to habitus, mildly increased respiratory rate but no distress, no appreciated rales, ronchi or wheezing. Heart: Improved but remains mildly tachycardic with regular rhythm; no gallop, rub audible. Abdomen: Soft, expected tenderness to palpation left lower quadrant, unable to express any material small wound suspected likely consistent with small region folliculitis, small overlying eschar, periwound erythema/induration, increased warmth, no obvious distention, distant BS, no obvious HSM however difficult exam given habitus and discomfort to palpation of the left abdomen. Extremities: No cyanosis, clubbing, or edema. Neurological: Patient awake, alert, oriented as noted, cognitive function intact; pupils equally reactive to light and accommodation, cranial nerves gross normal, moving all 4 extremities, no focal deficits, strength moderately globally decreased Psychiatric: Affect appears fatigued otherwise normal, no acute evidence of depressive or anxiety feelings but does have underlying history. Results Lab / Micro Data 07/23/24 15:26 07/23/24 15:26 Labs: Laboratory Results - last 24 hr 07/23/24 15:26: WBC 20.7 H, RBC 4.65, Hgb 13.0, Hct 37.7, MCV 81.1, MCH 28.0, MCHC 34.5, RDW Std Deviation 44.2 H, RDW Coeff of Sia 15.0 H, Plt Count 255, MPV 10.0, Immature Gran % (Auto) 0.700, Neut % (Auto) 82.5 H, Lymph % (Auto) 6.6 L, [place] % (Auto) 8.1, Eos % (Auto) 1.6, Baso % (Auto) 0.5, Absolute Neuts (auto) 17.0 H, Absolute Lymphs (auto) 1.36, Nucleated RBC % 0, Diff Path Review May foll, Atypical Lymphocytes 2+, PT 13.8, INR 1.0, APTT 38.0 H, Sodium 136, Potassium 4.1, Chloride 99, Carbon Dioxide 22.6, Anion Gap 14, BUN 12, Creatinine 0.83, Estim Creat Clear Calc 115.92, Est GFR (MDRD) Non-Af 85, BUN/Creatinine Ratio 13.9, Glucose 135 H, Lactic Acid 2.1 H, Calcium 9.4, Total Bilirubin 0.46, AST 17, ALT 13, Alkaline Phosphatase 97, Total Protein 7.7, Albumin 4.3, Globulin 3.4, Albumin/Globulin Ratio 1.2 07/23/24 16:05: Urine Color Yellow, Urine Clarity Sl. Cloudy, Urine pH 7.0, Ur Specific [place] 1.005, Urine Protein 30 H, Urine Glucose (UA) Normal, Urine Ketones Negative, Urine Occult Blood Negative, Urine Nitrite Negative, Urine Bilirubin Negative, Urine Urobilinogen Normal, Ur Leukocyte Esterase 25 H, Urine RBC 0-5 SEEN, Urine WBC 5-10 SEEN, Ur Squamous Epith Cells 0-5 SEEN, Urine Bacteria 1+, Urine Mucus 0 SEEN Imaging Radiology Impression Abdomen/Pelvis CT 07/23/24 16:40 IMPRESSION: 1. Cutaneous and subcutaneous thickening and stranding along the visualized left lower abdominal wall, compatible with cellulitis. No abscess within the visualized field of view. 2. Mild hepatomegaly with diffuse hepatic steatosis. 3. Moderate splenomegaly. 4. Simple appearing bilateral ovarian cysts. Recommend pelvic ultrasound in 6-8 weeks to evaluate for stability/resolution. Reading Location: [id number] Assessment & Plan Assessment/Plan (1) Cellulitis: PLAN: Plan The patient is a 54 y/o F w/ PMHx: Untreated Diabetes mellitus type II (noted stopped her medications), Morbid obesity, HTN, HLD, Anxiety and Depression, RLS, History of frequent hidradenitis, cyst requiring I&D who presents to the [facility] ED on 07/23/24 with history of onset left lower abdominal quadrant small red bump starting on the Saturday prior to presentation progressively worsening with increasing surrounding redness and tenderness to palpation, warm to touch as well as onset fever, chills, nausea without emesis, decreased appetite and headache with inability to adequately control her fever and given worsening appearance prompted eventual ED evaluation to be cautious. #1. Left lower quadrant with history of previous MRSA infection, frequent cyst/hidradenitis complicated by untreated diabetes: Given persistent tachycardia and fever to be cautious will admit to PCU, may de-escalate as clinically improving, maintain on IV vancomycin and Zosyn, if onset any drainage low threshold to obtain wound culture and MRSA wound PCR, will obtain MRSA nasal screen however given history, continue to trend CBC, monitor erythema outline, scheduled low-dose Toradol, Tylenol as needed, low-dose narcotic if absolutely necessary. #2. Diabetes mellitus type II, untreated: Hemoglobin A1c requested, maintain on ADA diet, accu checks w/ ISS. Suspect likely will require addition of regimen but will await A1c. #3. Hypertension: Continue home regimen including Lasix with hold parameters as needed, PRN hydralazine. #4. Hyperlipidemia: Not on regimen, defer to outpatient. #5. Anxiety and depression: Will continue patient home sertraline regimen. #6. Restless leg syndrome: We will continue patient on Requip regimen. #7. Suspected ANSLEY: Discussed with patient and she thinks likely she has it is never been formally tested, will monitor while inpatient, encourage strongly outpatient follow-up and formal assessment. #8. Morbid Obesity: Weight loss and lifestyle changes encouraged. #9. DVT prophylaxis: Lovenox. #10. 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 Discussed CODE status at length including difference between FULL code, DNR-CCA and DNR-CC status. Following discussions about the differences in these status, requested Full Code status. Charges/Coding Visit Charges Inpatient E&M: 18311 Init Hosp L3
[2024-07-23 19:35] LABS: Reflex Lactate? Y
[2024-07-23 20:17] LABS: Lactic Acid 1.3 mmol/L (0.0-2.0)
--- NOTE | 2024-07-23 20:19 | CASEMGMT ---
Care Management Face to Face with patient for initial transition planning/care coordination assessment in the ED. This racebook writer introduced self and role at [facility]. Patient alert and oriented. Patient willing to participate in assessment and is able to answer all questions appropriately. Care providers, pharmacy, and demographics verified. Admitting Diagnosis: cellulitis Other diagnosis history: diabetes, hypercholesteremia, CHF, PCOS, depression PCP: Lavonne Olsen Specialists: none Preferred Pharmacy: [facility] Insurance: [place] Prescription Benefit: yes Living Will/HPOA: none and does not want information LNOK: mother, Brianna, and 4 children (1 in [place], 2 in [facility], 1 in [place]) Living Arrangements: with roommate in a 1 story home with a wheelchair ramp to enter. Independent with all ADLs/IADLs at baseline. Transportation: patient drives DME: patient reportedly has no personal DME, but roommate reportedly has shower chair, walker, wheelchair, rollator, etc. should patient need anything. HHC: none SNF/Rehab: none Community Resources: none Behavioral Health History: anxiety and depression noted on chart. Patient goals: Patient wishes to discharge home, denies need for home health care at this time. Patient denies any further needs or concerns at this time. Disposition Plan: admission to acute; RN CM/SW to follow for discharge planning needs that may arise. Apoorva Ponec, SOLAR ENERGY SYSTEM INSTALLER, ETIQUETTE TEACHER
[2024-07-23] MEDS: 0.9% Normal Saline (1000mL) 1,000 ML 100 ML IV (20:58)
[2024-07-23] MEDS: Ketorolac 15 MG/ML Vial IV (21:00)
[2024-07-23] MEDS: 0.9% Saline Lock 10 ML Syringe IV (21:00)
[2024-07-23] MEDS: Enoxaparin 40 MG/0.4 ML Syringe SC (21:02)
[2024-07-23] MEDS: Pramipexole Di-HCl 0.5 MG Tablet PO (21:03)
[2024-07-23] MEDS: Sertraline 100 MG Tablet 150 MG PO (21:03)
[2024-07-23] MEDS: Furosemide 40 MG Tablet PO (21:09)
[2024-07-23] MEDS: Piperacil/Tazobactam 3.375 GM in 0.9% Normal Saline (50mL MB+) 50 ML IV (21:19)
[2024-07-23 21:40] LABS: Bedside Glucose 145 mg/dL (74-106)
--- NOTE | 2024-07-23 22:03 | PCM.RX.CS ---
Consult Antibiotic Management Pharmacy has been consulted to manage selected antibiotic: Vancomycin Type of Intervention Type of Consult: New start Labs Labs: Sodium 136 mmol/L (133-145) 07/23/24 15:26 Potassium 4.1 mmol/L (3.3-5.1) 07/23/24 15:26 Chloride 99 mmol/L (98-108) 07/23/24 15:26 Carbon Dioxide 22.6 mmol/L (21.0-32.0) 07/23/24 15:26 Anion Gap 14 (5-15) 07/23/24 15:26 BUN 12 mg/dL (4-19) 07/23/24 15:26 Creatinine 0.83 mg/dL (0.70-1.20) 07/23/24 15:26 Est GFR (MDRD) Non-Af 85 (>60) 07/23/24 15:26 BUN/Creatinine Ratio 13.9 RATIO (10-20) 07/23/24 15:26 Glucose 135 mg/dL (70-99) H 07/23/24 15:26 Dosing Weight Weight used for dosin kg Estimated Creatinine Clearance Estimated Creatinine Clearance: 115.92 Goal Trough Goal Trough: 15-20 mcg/mL Pharmacy Plan for Drug Dosing Pharmacy Plan for Drug Dosing: Pharmacy Service will continue to monitor and adjust dosing as required. 2000MG GIVEN IN ER 07/23 @ 9229. START 1500MG Q8H AND DRAW TROUGH PRIOR TO 4TH DOSE Follow-Up Labs Follow-Up Labs: Trough: Vancomycin Date/Time Labs Ordered Labs to be done on [date and time ordered]: 07/24 @ 1600
[2024-07-24] MEDS: Vancomycin HCl 1,500 MG in 0.9% Normal Saline (500mL Bag) 500 ML 250 MG IV ×3 (01:08→17:22)
[2024-07-24 03:50] VITALS: BP 129/62; PULSE 81; RESP 14; TEMP 37.4; O2SAT 96
[2024-07-24 04:51] VITALS: BMI 45.6
[2024-07-24] MEDS: Ketorolac 15 MG/ML Vial IV ×3 (05:34→21:11)
[2024-07-24] MEDS: Acetaminophen 325 MG Tablet 650 MG PO (05:35)
[2024-07-24] MEDS: 0.9% Saline Lock 10 ML Syringe IV ×6 (05:35→21:12)
[2024-07-24] MEDS: Piperacil/Tazobactam 3.375 GM in 0.9% Normal Saline (50mL MB+) 50 ML IV ×3 (05:35→21:12)
[2024-07-24 05:40] VITALS: BP 106/63; PULSE 80; RESP 14; TEMP 37.4; O2SAT 97
[2024-07-24 05:57] LABS: Absolute Lymphocyte Count 2.18 X10^3/uL (0.83-4.51); Absolute Neutrophil Count 13.1 X10^3/uL (2.0-7.7); Basophil# 0.08 X10^3/uL; Basophil% 0.5 % (0-1); Eosinophil# 0.61 X10^3/uL; Eosinophils% 3.5 % (0-5); Hematocrit 33.6 % (37-47); Hemoglobin 11.3 g/dL (12.0-15.0); Lymphocyte # 2.18 X10^3/ul (0.83-4.51); Lymphocyte % 12.6 % (19-41); Mean Corp Hgb Conc 33.6 g/dL (32-36); Mean Corpuscular Volume 83.2 fL (81-99); Mean Platelet Vol. 10.3 fl (6.2-12.0); Monocyte# 1.26 X10^3/uL; Monocyte% 7.3 % (0-10); NRBC Flagged by Analyzer 0 % (0-5); Neutrophil # 13.06 X10^3/uL (2.7-7.7); Neutrophil % 75.5 % (47-70); Platelet Count 220 K/mm3 (150-450); RBC Distribution Width CV 14.8 % (11.6-14.6); RBC Distribution Width SD 44.8 fl (35.1-43.9); Red Blood Count 4.04 M/mm3 (4.2-5.4); White Blood Count 17.3 K/mm3 (4.4-11.0)
[2024-07-24 06:51] LABS: ALB/GLOB Ratio 1.1 RATIO (0.9-2.4); AST(SGOT) 12 U/L (<=31); Alanine Aminotransfer ALT/SGPT 8 U/L (<=34); Albumin, Serum 3.4 g/dL (3.5-5.0); Alkaline Phosphatase 75 U/L (35-104); Anion Gap 11 (5-15); BUN 10 mg/dL (4-19); Calcium,Total 8.3 mg/dL (7.6-11.0); Carbon Dioxide 19.2 mmol/L (21.0-32.0); Chloride 107 mmol/L (98-108); Creatinine, Serum 0.74 mg/dL (0.70-1.20); EST Glomerular Filtration Rate 96 (>60); Estimated Creatinine Clearance 129.94 ml/min (50-250); Glucose 149 mg/dL (70-99); Potassium 3.7 mmol/L (3.3-5.1); Protein, Total 6.3 g/dL (5.9-8.4); Sodium Level 137 mmol/L (133-145); Total Bilirubin 0.82 mg/dL (0.00-1.30)
--- NOTE | 2024-07-24 07:57 | PCM.PN.HOSP ---
Reason for Visit Reason for Visit: Diagnoses Cellulitis, unspecified (07/23/24) Subjective Subjective Patient is a 54-year-old female who presented with swelling and erythema involving the left anterior abdominal wall and assessment of abdominal wall cellulitis with abscess made admitted to regular nursing floor for subsequent management Objective Data Objective Data Vital Signs: Vital Signs Temp Pulse Resp BP Pulse Ox O2 Del Method 99.4 F H 80 14 106/63 97 Room Air 07/24/24 05:40 07/24/24 05:40 07/24/24 05:40 07/24/24 05:40 07/24/24 05:40 07/24/24 05:40 Oxygen Delivery Method Room Air Weight: 138.2 kg Body Mass Index (BMI) 45.6 Intake & Output: Intake and Output for Last 24 Hours 07/22/24 07/23/24 07/24/24 23:59 23:59 23:59 Intake Total 3640 / 3640 680 / 680 Output Total 0 / 0 Balance 3640 / 3640 680 / 680 Lab / Micro Data 07/24/24 05:17 07/24/24 05:17 Labs: Laboratory Results - last 24 hr 07/23/24 15:26: WBC 20.7 H, RBC 4.65, Hgb 13.0, Hct 37.7, MCV 81.1, MCH 28.0, MCHC 34.5, RDW Std Deviation 44.2 H, RDW Coeff of Sia 15.0 H, Plt Count 255, MPV 10.0, Immature Gran % (Auto) 0.700, Neut % (Auto) 82.5 H, Lymph % (Auto) 6.6 L, [place] % (Auto) 8.1, Eos % (Auto) 1.6, Baso % (Auto) 0.5, Absolute Neuts (auto) 17.0 H, Absolute Lymphs (auto) 1.36, Nucleated RBC % 0, Diff Path Review May foll, Atypical Lymphocytes 2+, PT 13.8, INR 1.0, APTT 38.0 H, Sodium 136, Potassium 4.1, Chloride 99, Carbon Dioxide 22.6, Anion Gap 14, BUN 12, Creatinine 0.83, Estim Creat Clear Calc 115.92, Est GFR (MDRD) Non-Af 85, BUN/Creatinine Ratio 13.9, Glucose 135 H, Lactic Acid 2.1 H, Calcium 9.4, Total Bilirubin 0.46, AST 17, ALT 13, Alkaline Phosphatase 97, Total Protein 7.7, Albumin 4.3, Globulin 3.4, Albumin/Globulin Ratio 1.2 07/23/24 16:05: Urine Color Yellow, Urine Clarity Sl. Cloudy, Urine pH 7.0, Ur Specific [place] 1.005, Urine Protein 30 H, Urine Glucose (UA) Normal, Urine Ketones Negative, Urine Occult Blood Negative, Urine Nitrite Negative, Urine Bilirubin Negative, Urine Urobilinogen Normal, Ur Leukocyte Esterase 25 H, Urine RBC 0-5 SEEN, Urine WBC 5-10 SEEN, Ur Squamous Epith Cells 0-5 SEEN, Urine Bacteria 1+, Urine Mucus 0 SEEN 07/23/24 19:43: Lactic Acid 1.3 07/23/24 21:05: POC Glucose 145 H 07/24/24 05:17: WBC 17.3 H, RBC 4.04 L, Hgb 11.3 L, Hct 33.6 L, MCV 83.2, MCH 28.0, MCHC 33.6, RDW Std Deviation 44.8 H, RDW Coeff of Sia 14.8 H, Plt Count 220, MPV 10.3, Immature Gran % (Auto) 0.600, Neut % (Auto) 75.5 H, Lymph % (Auto) 12.6 L, [place] % (Auto) 7.3, Eos % (Auto) 3.5, Baso % (Auto) 0.5, Absolute Neuts (auto) 13.1 H, Absolute Lymphs (auto) 2.18, Nucleated RBC % 0, Sodium 137, Potassium 3.7, Chloride 107, Carbon Dioxide 19.2 L, Anion Gap 11, BUN 10, Creatinine 0.74, Estim Creat Clear Calc 129.94, Est GFR (MDRD) Non-Af 96, BUN/Creatinine Ratio 14.0, Glucose 149 H, Calcium 8.3, Total Bilirubin 0.82, AST 12, ALT 8, Alkaline Phosphatase 75, Total Protein 6.3, Albumin 3.4 L, Globulin 3.0, Albumin/Globulin Ratio 1.1 Micro: Microbiology 07/23/24 21:14 Nasal Secretion MRSA (PCR) - Final Meth. resistant Staph. aureus Radiography Diagnostic Testing: Radiology Impression Abdomen/Pelvis CT 07/23/24 16:40 IMPRESSION: 1. Cutaneous and subcutaneous thickening and stranding along the visualized left lower abdominal wall, compatible with cellulitis. No abscess within the visualized field of view. 2. Mild hepatomegaly with diffuse hepatic steatosis. 3. Moderate splenomegaly. 4. Simple appearing bilateral ovarian cysts. Recommend pelvic ultrasound in 6-8 weeks to evaluate for stability/resolution. Reading Location: [facility] Physical Exam Narrative GENERAL: cooperative HEENT: Atraumatic; normocephalic EYES; Anicteric, Normal Conjunctiva NECK; supple, normal thyroid, RESPIRATORY: Diminished to auscultation CARDIOVASCULAR: Regular S1 S2, GI: soft, normoactive bowel sounds, : No Renal angle tenderness; EXTREMITIES: No edema, no clubbing, MUSCULOSKELETAL: no muscle wasting NEURO: Awake; no lateralizing signs. SKIN: An area of induration involving the left lower anterior abdominal wall with erythema and warmth PSYCH; Flat affect Assessment & Plan Assessment/Plan (1) Cellulitis: PLAN: Plan Patient is a 54-year-old female who presented with swelling and erythema involving the left anterior abdominal wall and assessment of abdominal wall cellulitis with abscess made admitted to regular nursing floor for subsequent management 1. Anterior abdominal wall cellulitis with abscess ? Patient started on broad-spectrum antibiotic therapy. Consult was placed to Dr. Mcgovern with plastic surgery for possible I&D 2. Class III obesity with BMI of 45.7 ? Complicating care weight loss advised 3. Diabetes mellitus type 2 ? Managed with diet ordered hemoglobin A1c patient placed on Accu-Cheks before meals and at bedtime with sliding scale coverage 4. Restless leg syndrome ? Patient is on ropinirole 5. Depression with anxiety ? Patient is on sertraline 6. Suspected obstructive sleep apnea ? Patient to undergo sleep study as outpatient 7. DVT prophylaxis ? On enoxaparin Time spent in the patient's overall evaluation,decision-making process, review of diagnostic data, adjustment of management, discussion with other providers, nursing nursing and ancillary staff involved in patient's care documentation, 50 Minutes Charges/Coding Visit Charges Inpatient E&M: [address] [place] [id number]
[2024-07-24 08:01] LABS: Bedside Glucose 133 mg/dL (74-106)
[2024-07-24 08:39] LABS: Hemoglobin A1c 6.9 % (<=5.6)
[2024-07-24] MEDS: 0.9% Normal Saline (100mL Bag) 100 ML 15 ML IV ×2 (08:47→18:23)
--- NOTE | 2024-07-24 10:22 | EX.PCM.CON.S ---
Assessment & Plan Assessment/Plan (1) History of diabetes mellitus: (2) Abscess of skin of abdomen: (3) Abdominal wall cellulitis: PLAN: Plan I believe that the cellulitis has coalesced into a small abscess with the IV antibiotics. There is a draining pustule with purulence. Please see separate note below for the procedure, but this was opened and drained at bedside and cultures were taken. Follow-up culture Continue broad-spectrum IV antibiotics Iodoform gauze twice daily (start dressing changes tonight) Plastic surgery will follow Procedure note: Preoperative diagnosis: Abdominal left lower quadrant skin abscess Postoperative diagnosis: Same Procedure: Incision and drainage of left lower quadrant skin abscess, superficial Indication: See above Patient was correctly identified and a timeout was performed with her nurse practitioner. Patient signed a consent for I&D. Patient understood the risks, benefits, and alternatives to I&D, and she elected to proceed. She understand the risks of wound healing complications. Procedure details: The area was prepped and draped in sterile fashion using alcohol swab and 10 cc of 1% lidocaine with epinephrine was used to inject around the pustule . A hemostat was used to open the wound edges and spread open the abscess and probe around the cavity breaking up some of the loculations that were forming. The pus was cultured and the wound was irrigated with normal saline. The patient tolerated the procedure well. The wound was packed with iodoform gauze. HPI Consult Data Date of Consult: 07/24/24 HPI Narrative HPI Narrative: MARYBEL MCKINNEY is a delightful 54-year-old female who presents with history of type 2 diabetes with A1c of 6.9 who was admitted to the medicine service overnight (23 July 2024) l for eft lower quadrant abdominal cellulitis/abscess. CT scan from yesterday demonstrated isolated cellulitis and she was placed on vancomycin and Zosyn as she was febrile to 100.9 and tachycardic to 103 with a white blood cell count of 20,000. Patient denies any history of trauma to the area but noticed a small pustule forming on Saturday, 20 July 2023, and the pain and swelling around this pustule got worse over the last several days. The pain is sharp and severe and worsened by movements and improved with rest. She is not a smoker. Of note she has a history of hidradenitis [facility] Medical History MRSA (methicillin resistant staph aureus) culture positive Congestive heart failure (CHF) Wears glasses Post-menopausal Anxiety Diabetes Arthritis High cholesterol Easy bruising Migraine headache Restless legs Non-smoker Shortness of breath on exertion History of edema History of stress test History of CHF (congestive heart failure) Hypertension Hx of cyst of breast Hyperlipidemia PCOS (polycystic ovarian syndrome) Thyroid goiter Asthma Depression Home Medications ?Medication ?Instructions ?Recorded ?Last Taken ?Type albuterol sulfate 90 mcg/actuation 2 puff inhalation Q4H PRN 02/26/24 07/22/24 History aerosol inhaler shortness of breath or wheezing furosemide 40 mg tablet (Lasix) 40 mg PO QDAY 02/26/24 07/23/24 History ibuprofen 200 mg tablet 400 mg PO BID 02/26/24 07/23/24 History ropinirole 1 mg tablet 1 mg PO BID 02/26/24 Unknown History sertraline 100 mg tablet (Zoloft) 150 mg PO QHS 02/26/24 07/22/24 History Allergy/AdvReac Type Severity Reaction Status Date / Time niacin Allergy Hives Verified 07/23/24 15:44 adhesive AdvReac Rash Verified 07/23/24 15:44 Family History Brother Stomach cancer Esophageal cancer Mother Heart disease CAD (coronary artery disease) Kidney disease Father CAD (coronary artery disease) Heart disease Hypertension Myocardial infarction Ruptured abdominal aortic aneurysm Other Diabetes Surgical History Hx of oral surgery Hx of tonsillectomy Social History household members: other details: Roommate current occupational status: employed Smoking Status: Never smoker alcohol intake: never substance use type: does not use Physical Exam Narrative Abdominal exam: Not peritonitic. No rigidity No palpable hernias Left lower extremity with small pustule that is draining blood and purulence from the left lower quadrant with surrounding induration that is quite isolated. No crepitus Lab / Micro Data 07/24/24 05:17 07/24/24 05:17 Labs: Laboratory Results - last 24 hr 07/23/24 15:26: WBC 20.7 H, RBC 4.65, Hgb 13.0, Hct 37.7, MCV 81.1, MCH 28.0, MCHC 34.5, RDW Std Deviation 44.2 H, RDW Coeff of Sia 15.0 H, Plt Count 255, MPV 10.0, Immature Gran % (Auto) 0.700, Neut % (Auto) 82.5 H, Lymph % (Auto) 6.6 L, [place] % (Auto) 8.1, Eos % (Auto) 1.6, Baso % (Auto) 0.5, Absolute Neuts (auto) 17.0 H, Absolute Lymphs (auto) 1.36, Nucleated RBC % 0, Diff Path Review August, Atypical Lymphocytes 2+, PT 13.8, INR 1.0, APTT 38.0 H, Sodium 136, Potassium 4.1, Chloride 99, Carbon Dioxide 22.6, Anion Gap 14, BUN 12, Creatinine 0.83, Estim Creat Clear Calc 115.92, Est GFR (MDRD) Non-Af 85, BUN/Creatinine Ratio 13.9, Glucose 135 H, Lactic Acid 2.1 H, Calcium 9.4, Total Bilirubin 0.46, AST 17, ALT 13, Alkaline Phosphatase 97, Total Protein 7.7, Albumin 4.3, Globulin 3.4, Albumin/Globulin Ratio 1.2 07/23/24 16:05: Urine Color Yellow, Urine Clarity Sl. Cloudy, Urine pH 7.0, Ur Specific [place] 1.005, Urine Protein 30 H, Urine Glucose (UA) Normal, Urine Ketones Negative, Urine Occult Blood Negative, Urine Nitrite Negative, Urine Bilirubin Negative, Urine Urobilinogen Normal, Ur Leukocyte Esterase 25 H, Urine RBC 0-5 SEEN, Urine WBC 5-10 SEEN, Ur Squamous Epith Cells 0-5 SEEN, Urine Bacteria 1+, Urine Mucus 0 SEEN 07/23/24 19:43: Lactic Acid 1.3 07/23/24 21:05: POC Glucose 145 H 07/24/24 05:17: WBC 17.3 H, RBC 4.04 L, Hgb 11.3 L, Hct 33.6 L, MCV 83.2, MCH 28.0, MCHC 33.6, RDW Std Deviation 44.8 H, RDW Coeff of Sia 14.8 H, Plt Count 220, MPV 10.3, Immature Gran % (Auto) 0.600, Neut % (Auto) 75.5 H, Lymph % (Auto) 12.6 L, [place] % (Auto) 7.3, Eos % (Auto) 3.5, Baso % (Auto) 0.5, Absolute Neuts (auto) 13.1 H, Absolute Lymphs (auto) 2.18, Nucleated RBC % 0, Sodium 137, Potassium 3.7, Chloride 107, Carbon Dioxide 19.2 L, Anion Gap 11, BUN 10, Creatinine 0.74, Estim Creat Clear Calc 129.94, Est GFR (MDRD) Non-Af 96, BUN/Creatinine Ratio 14.0, Glucose 149 H, Hemoglobin A1c 6.9, Calcium 8.3, Total Bilirubin 0.82, AST 12, ALT 8, Alkaline Phosphatase 75, Total Protein 6.3, Albumin 3.4 L, Globulin 3.0, Albumin/Globulin Ratio 1.1 07/24/24 07:41: POC Glucose 133 H Micro: Microbiology 07/23/24 21:14 Nasal Secretion MRSA (PCR) - Final Meth. resistant Staph. aureus Imaging Radiology Impression Abdomen/Pelvis CT 07/23/24 16:40 IMPRESSION: 1. Cutaneous and subcutaneous thickening and stranding along the visualized left lower abdominal wall, compatible with cellulitis. No abscess within the visualized field of view. 2. Mild hepatomegaly with diffuse hepatic steatosis. 3. Moderate splenomegaly. 4. Simple appearing bilateral ovarian cysts. Recommend pelvic ultrasound in 6-8 weeks to evaluate for stability/resolution. Reading Location: [facility] I personally reviewed the CT scan and agree. No hernias and no identifiable abscess on the CT scan. Consistent with cellulitis Charges/Coding Multi Select Codes Visit Charges Office Visit/Consults: 88937 IP Consult L5 (Reviewed history and the CT, examined patient/performed procedure to address the problem )
[2024-07-24 11:10] VITALS: BP 135/89; PULSE 74; RESP 16; TEMP 36.9; O2SAT 100
[2024-07-24] MEDS: HYDROmorphone 0.5 MG/0.5 ML SYRINGE IV (11:10)
[2024-07-24] MEDS: Enoxaparin 40 MG/0.4 ML Syringe SC ×2 (11:19→21:11)
[2024-07-24] MEDS: Furosemide 40 MG Tablet PO (11:21)
[2024-07-24] MEDS: Pramipexole Di-HCl 0.5 MG Tablet PO ×2 (11:21→21:11)
[2024-07-24 12:20] VITALS: O2SAT 98
[2024-07-24 12:26] LABS: Bedside Glucose 103 mg/dL (74-106)
[2024-07-24 16:48] LABS: Vancomycin, Trough Level 18.5 ug/mL (5.0-15.0)
[2024-07-24 16:55] VITALS: BP 104/92; PULSE 86; RESP 16; TEMP 36.8; O2SAT 98
--- NOTE | 2024-07-24 17:04 | PCM.RX.CS ---
Consult Antibiotic Management Pharmacy has been consulted to manage selected antibiotic: Vancomycin Type of Intervention Type of Consult: Follow-up Suspected Infection Suspected Infection: Skin/Soft tissue Prior Doses of Antibiotics Prior Doses of Antibiotics Received/Current Regimen: Vancomycin 1500 mg Q8H, last dose given 07/24/24 @ 0843 Labs Labs: Sodium 137 mmol/L (133-145) 07/24/24 05:17 Potassium 3.7 mmol/L (3.3-5.1) 07/24/24 05:17 Chloride 107 mmol/L (98-108) 07/24/24 05:17 Carbon Dioxide 19.2 mmol/L (21.0-32.0) L 07/24/24 05:17 Anion Gap 11 (5-15) 07/24/24 05:17 BUN 10 mg/dL (4-19) 07/24/24 05:17 Creatinine 0.74 mg/dL (0.70-1.20) 07/24/24 05:17 Est GFR (MDRD) Non-Af 96 (>60) 07/24/24 05:17 BUN/Creatinine Ratio 14.0 RATIO (10-20) 07/24/24 05:17 Glucose 149 mg/dL (70-99) H 07/24/24 05:17 Vancomycin Trough 18.5 ug/mL (5.0-15.0) H 07/24/24 16:08 Microbiology Microbiology: Microbiology 07/24/24 Unknown Wound Abcess - Aerobic & Anaerobic Swabs Gram Stain - Final 07/23/24 21:14 Nasal Secretion MRSA (PCR) - Final Meth. resistant Staph. aureus Dosing Weight Weight used for dosin kg Estimated Creatinine Clearance Estimated Creatinine Clearance: ~130 Goal Trough Goal Trough: 15-20 mcg/mL Pharmacy Plan for Drug Dosing Pharmacy Plan for Drug Dosing: Vancomycin trough = 18.5, continue current dosing. Pharmacy Service will continue to monitor and adjust dosing as required. Follow-Up Labs Follow-Up Labs: Trough: Vancomycin Date/Time Labs Ordered Labs to be done on [date and time ordered]: 07/25 @ 7879
[2024-07-24 17:19] LABS: Bedside Glucose 132 mg/dL (74-106)
[2024-07-24] MEDS: oxyCODONE 5 MG Tablet PO (21:11)
[2024-07-24] MEDS: Sertraline 100 MG Tablet 150 MG PO (21:12)
[2024-07-24 21:25] VITALS: BP 134/62; PULSE 89; RESP 16; TEMP 37.3; O2SAT 96
[2024-07-24 23:41] LABS: Bedside Glucose 114 mg/dL (74-106)
[2024-07-25] MEDS: Vancomycin HCl 1,500 MG in 0.9% Normal Saline (500mL Bag) 500 ML 250 MG IV ×4 (00:03→23:48)
[2024-07-25 03:20] VITALS: BP 135/66; PULSE 78; RESP 14; TEMP 36.8; O2SAT 95
[2024-07-25 04:34] VITALS: BMI 46.0
[2024-07-25] MEDS: 0.9% Saline Lock 10 ML Syringe IV ×4 (06:23→23:48)
[2024-07-25] MEDS: Piperacil/Tazobactam 3.375 GM in 0.9% Normal Saline (50mL MB+) 50 ML IV ×3 (06:23→21:38)
[2024-07-25] MEDS: Ketorolac 15 MG/ML Vial IV (06:23)
[2024-07-25 06:54] LABS: Bedside Glucose 107 mg/dL (74-106)
[2024-07-25 06:58] LABS: NRBC Flagged by Analyzer 0 % (0-5)
[2024-07-25 07:14] LABS: Anion Gap 12 (5-15); BUN 11 mg/dL (4-19); BUN/Creat Ratio 13.6 RATIO (10-20); Calcium,Total 8.7 mg/dL (7.6-11.0); Carbon Dioxide 22.1 mmol/L (21.0-32.0); Chloride 103 mmol/L (98-108); Creatinine, Serum 0.81 mg/dL (0.70-1.20); EST Glomerular Filtration Rate 87 (>60); Estimated Creatinine Clearance 119.37 ml/min (50-250); Glucose 105 mg/dL (70-99); Magnesium 1.9 mg/dL (1.5-2.2); Phosphorus 3.6 mg/dL (2.7-4.5); Potassium 3.5 mmol/L (3.3-5.1); Sodium Level 137 mmol/L (133-145)
[2024-07-25 07:18] LABS: Differential Indicated SCAN CRITERIA MET
[2024-07-25 07:28] VITALS: O2SAT 98
--- NOTE | 2024-07-25 07:49 | PN.HOSP_ITS ---
Reason for Visit Reason for Visit: Diagnoses Cutaneous abscess of abdominal wall (07/23/24) Cellulitis of abdominal wall (07/23/24) Cellulitis, unspecified (07/23/24) Personal history of other endocrine, nutritional and metabolic disease (07/23/24) Subjective Subjective Patient underwent bedside I&D by Dr. Polanco with plastic surgery. Culture sent result pending. Patient remains on broad-spectrum antibiotic therapy Objective Data Objective Data Vital Signs: Vital Signs Temp Pulse Resp BP Pulse Ox O2 Del Method 98.2 F 78 14 135/66 H 95 Room Air 07/25/24 03:20 07/25/24 03:20 07/25/24 03:20 07/25/24 03:20 07/25/24 03:20 07/25/24 03:29 Oxygen Delivery Method Room Air Weight: 139.5 kg Body Mass Index (BMI) 46.0 Intake & Output: Intake and Output for Last 24 Hours 07/23/24 07/24/24 07/25/24 23:59 23:59 23:59 Intake Total 3640 / 3640 3939.50 / 3939.50 580 / 580 Output Total 0 / 0 Balance 3640 / 3640 3939.50 / 3939.50 580 / 580 Lab / Micro Data 07/25/24 04:50 07/25/24 04:50 Labs: Laboratory Results - last 24 hr 07/24/24 05:17: Hemoglobin A1c 6.9 07/24/24 07:41: POC Glucose 133 H 07/24/24 11:37: POC Glucose 103 07/24/24 16:08: Vancomycin Trough 18.5 H 07/24/24 16:56: POC Glucose 132 H 07/24/24 21:15: POC Glucose 114 H 07/25/24 04:50: WBC 8.5, RBC 7.63 H, Hgb 21.2 H*, Hct 62.3 H, MCV 81.7, MCH 27.8, MCHC 34.0, RDW Std Deviation 43.6, RDW Coeff of Sia 16.7 H, Plt Count 88 L , MPV 10.2, Immature Gran % (Auto) 0.500, Neut % (Auto) 66.2, Lymph % (Auto) 23.2, [place] % (Auto) 4.6, Eos % (Auto) 4.9, Baso % (Auto) 0.6, Absolute Neuts (auto) 5.6, Absolute Lymphs (auto) 1.97, Nucleated RBC % 0, Sodium 137, Potassium 3.5, Chloride 103, Carbon Dioxide 22.1, Anion Gap 12, BUN 11, Creatinine 0.81, Estim Creat Clear Calc 119.37, Est GFR (MDRD) Non-Af 87, BUN/Creatinine Ratio 13.6, Glucose 105 H, Calcium 8.7, Phosphorus 3.6, Magnesium 1.9 07/25/24 06:22: POC Glucose 107 H Micro: Microbiology 07/24/24 Unknown Wound Abcess - Aerobic & Anaerobic Swabs Gram Stain - Final 07/23/24 21:14 Nasal Secretion MRSA (PCR) - Final Meth. resistant Staph. aureus Physical Exam Narrative GENERAL: cooperative HEENT: Atraumatic; normocephalic EYES; Anicteric, Normal Conjunctiva NECK; supple, normal thyroid, RESPIRATORY: Diminished to auscultation CARDIOVASCULAR: Regular S1 S2, GI: soft, normoactive bowel sounds, : No Renal angle tenderness; EXTREMITIES: No edema, no clubbing, MUSCULOSKELETAL: no muscle wasting NEURO: Awake; no lateralizing signs. SKIN: An area of induration involving the left lower anterior abdominal wall with erythema and warmth PSYCH; Flat affect Assessment & Plan Assessment/Plan (1) Cellulitis: PLAN: Plan Patient is a 54-year-old female who presented with swelling and erythema involving the left anterior abdominal wall and assessment of abdominal wall cellulitis with abscess made admitted to regular nursing floor for subsequent management 1. Anterior abdominal wall cellulitis with abscess ? Patient started on broad-spectrum antibiotic therapy. Consult was placed to Dr. Polanco with plastic surgery for possible I&D ?07/25/2024 patient underwent bedside I&D by Dr. Polanco with plastic surgery. Culture sent result pending. Patient remains on broad-spectrum antibiotic therapy 2. Class III obesity with BMI of 45.7 ? Complicating care weight loss advised 3. Diabetes mellitus type 2 ? Managed with diet ordered hemoglobin A1c patient placed on Accu-Cheks before meals and at bedtime with sliding scale coverage 4. Restless leg syndrome ? Patient is on ropinirole 5. Depression with anxiety ? Patient is on sertraline 6. Suspected obstructive sleep apnea ? Patient to undergo sleep study as outpatient 7. DVT prophylaxis ? On enoxaparin Time spent in the patient's overall evaluation,decision-making process, review of diagnostic data, adjustment of management, discussion with other providers, nursing nursing and ancillary staff involved in patient's care documentation, 38 Minutes Charges/Coding Visit Charges Inpatient E&M: 88676 Subs Hosp L2
[2024-07-25 09:11] LABS: Red Blood Count 3.98 M/mm3 (4.2-5.4); White Blood Count 14.6 K/mm3 (4.4-11.0)
[2024-07-25 09:12] LABS: Hematocrit 32.6 % (37-47); Hemoglobin 11.2 g/dL (12.0-15.0); Mean Corpuscular Hgb 28.1 pg (27.0-32.0); Mean Corpuscular Volume 81.9 fL (81-99)
[2024-07-25 09:13] LABS: Mean Corp Hgb Conc 34.4 g/dL (32-36); Mean Platelet Vol. 10.3 fl (6.2-12.0); Neutrophil % 71.9 % (47-70); POSITIVE COUNT NO; Platelet Count 242 K/mm3 (150-450); RBC Distribution Width CV 14.6 % (11.6-14.6); RBC Distribution Width SD 43.9 fl (35.1-43.9)
[2024-07-25 09:14] LABS: Basophil% 0.5 % (0-1); Eosinophils% 5.1 % (0-5); Lymphocyte % 15.1 % (19-41); Monocyte% 6.9 % (0-10)
[2024-07-25 09:15] LABS: Neutrophil # 10.53 X10^3/uL (2.7-7.7)
[2024-07-25 09:16] LABS: Absolute Lymphocyte Count 2.21 X10^3/uL (0.83-4.51); Absolute Neutrophil Count 10.5 X10^3/uL (2.0-7.7); Lymphocyte # 2.21 X10^3/ul (0.83-4.51)
[2024-07-25 09:17] LABS: Basophil# 0.08 X10^3/uL; Eosinophil# 0.74 X10^3/uL; Monocyte# 1.01 X10^3/uL
[2024-07-25 09:46] VITALS: BP 145/79; PULSE 85; RESP 16; TEMP 36.7; O2SAT 96
[2024-07-25] MEDS: Enoxaparin 40 MG/0.4 ML Syringe SC ×2 (09:49→21:37)
[2024-07-25] MEDS: Pramipexole Di-HCl 0.5 MG Tablet PO ×2 (09:49→21:37)
[2024-07-25] MEDS: Furosemide 40 MG Tablet PO (09:49)
--- NOTE | 2024-07-25 09:56 | PN.SURG_ITS ---
Subjective Subjective Doing well overall compared with yesterday. Reports less pain around the wound/abscess/cellulitic area. Endorses excellent dressing changes by nursing. Objective Data Objective Data Vital Signs: Vital Signs Temp Pulse Resp BP Pulse Ox O2 Del Method 98.1 F 85 16 145/79 H 96 Room Air 07/25/24 09:46 07/25/24 09:46 07/25/24 09:46 07/25/24 09:46 07/25/24 09:46 07/25/24 09:46 Oxygen Delivery Method Room Air Weight: 307 lb 8.717 oz Body Mass Index (BMI) 46.0 Intake & Output: Intake and Output for Last 24 Hours 07/23/24 07/24/24 07/25/24 23:59 23:59 23:59 Intake Total 3640 / 3640 3939.50 / 3939.50 580 / 580 Output Total 0 / 0 Balance 3640 / 3640 3939.50 / 3939.50 580 / 580 Lab / Micro Data 07/25/24 04:50 07/25/24 04:50 Labs: Laboratory Results - last 24 hr 07/24/24 11:37: POC Glucose 103 07/24/24 16:08: Vancomycin Trough 18.5 H 07/24/24 16:56: POC Glucose 132 H 07/24/24 21:15: POC Glucose 114 H 07/25/24 04:50: WBC 14.6 H, RBC 3.98 L, Hgb 11.2 L, Hct 32.6 L, MCV 81.9, MCH 28.1, MCHC 34.4, RDW Std Deviation 43.9, RDW Coeff of Sia 14.6, Plt Count 242, MPV 10.3, Immature Gran % (Auto) 0.500, Neut % (Auto) 71.9 H, Lymph % (Auto) 15.1 L, [place] % (Auto) 6.9, Eos % (Auto) 5.1 H, Baso % (Auto) 0.5, Absolute Neuts (auto) 10.5 H, Absolute Lymphs (auto) 2.21, Nucleated RBC % 0, Sodium 137, Potassium 3.5, Chloride 103, Carbon Dioxide 22.1, Anion Gap 12, BUN 11, Creatinine 0.81, Estim Creat Clear Calc 119.37, Est GFR (MDRD) Non-Af 87, BUN/Creatinine Ratio 13.6, Glucose 105 H, Calcium 8.7, Phosphorus 3.6, Magnesium 1.9 07/25/24 06:22: POC Glucose 107 H Micro: Microbiology 07/24/24 Unknown Wound Abcess - Aerobic & Anaerobic Swabs Gram Stain - Final 07/23/24 21:14 Nasal Secretion MRSA (PCR) - Final Meth. resistant Staph. aureus Physical Exam Narrative Wound examined with nursing. Minimal purulent drainage. Induration and redness is localized/no spread. No crepitus. Packing changed on rounds. Assessment & Plan Assessment/Plan (1) History of diabetes mellitus: (2) Abscess of skin of abdomen: (3) Abdominal wall cellulitis: PLAN: Plan Follow-up culture (PCR demonstrating MRSA) Continue broad-spectrum IV antibiotics (agree with Vancomycin) Iodoform gauze twice daily (next dressing tonight) Plastic surgery will continue to follow WBC improving and afebrile. Heading in the right direction Charges/Coding Visit Charges Inpatient E&M: 83092 Subs Hosp L1
[2024-07-25] MEDS: oxyCODONE 5 MG Tablet PO ×2 (09:58→19:44)
[2024-07-25] MEDS: Acetaminophen 325 MG Tablet 650 MG PO ×2 (09:58→19:44)
[2024-07-25 11:43] LABS: Hemoglobin A1c 6.7 % (<=5.6)
[2024-07-25 12:01] LABS: Bedside Glucose 107 mg/dL (74-106)
[2024-07-25 14:11] VITALS: BP 119/80; PULSE 72; RESP 16; TEMP 36.8; O2SAT 95
[2024-07-25 17:05] LABS: Bedside Glucose 128 mg/dL (74-106)
[2024-07-25 19:38] VITALS: BP 135/70; PULSE 84; RESP 16; TEMP 36.8; O2SAT 99
[2024-07-25] MEDS: Sertraline 100 MG Tablet 150 MG PO (21:37)
[2024-07-25 22:45] LABS: Bedside Glucose 120 mg/dL (74-106)
--- NOTE | 2024-07-25 23:17 | NURSING ---
This RN taking over care at this time
[2024-07-25 23:51] VITALS: BP 134/68; PULSE 75; RESP 18; TEMP 36.7; O2SAT 97
[2024-07-26] MEDS: Acetaminophen 325 MG Tablet 650 MG PO ×2 (03:44→21:09)
[2024-07-26] MEDS: oxyCODONE 5 MG Tablet PO (03:44)
[2024-07-26 04:01] VITALS: BP 158/85; PULSE 73; RESP 18; TEMP 36.9; O2SAT 97
[2024-07-26 04:41] VITALS: BMI 46.1
[2024-07-26 05:11] LABS: Absolute Neutrophil Count 7.4 X10^3/uL (2.0-7.7); Basophil# 0.06 X10^3/uL; Basophil% 0.6 % (0-1); Eosinophil# 0.74 X10^3/uL; Eosinophils% 6.9 % (0-5); Hematocrit 33.6 % (37-47); Hemoglobin 11.4 g/dL (12.0-15.0); Lymphocyte % 17.7 % (19-41); Mean Corp Hgb Conc 33.9 g/dL (32-36); Mean Corpuscular Hgb 27.7 pg (27.0-32.0); Mean Corpuscular Volume 81.8 fL (81-99); Mean Platelet Vol. 10.4 fl (6.2-12.0); Monocyte# 0.65 X10^3/uL; NRBC Flagged by Analyzer 0 % (0-5); Neutrophil # 7.36 X10^3/uL (2.7-7.7); Neutrophil % 68.3 % (47-70); Platelet Count 251 K/mm3 (150-450); RBC Distribution Width CV 14.3 % (11.6-14.6); RBC Distribution Width SD 42.5 fl (35.1-43.9); Red Blood Count 4.11 M/mm3 (4.2-5.4); White Blood Count 10.8 K/mm3 (4.4-11.0)
[2024-07-26] MEDS: Piperacil/Tazobactam 3.375 GM in 0.9% Normal Saline (50mL MB+) 50 ML IV ×3 (06:22→21:21)
[2024-07-26 06:54] LABS: Bedside Glucose 94 mg/dL (74-106)
[2024-07-26 07:03] VITALS: O2SAT 96
[2024-07-26 07:38] LABS: Anion Gap 14 (5-15); BUN 11 mg/dL (4-19); BUN/Creat Ratio 13.7 RATIO (10-20); Calcium,Total 8.6 mg/dL (7.6-11.0); Carbon Dioxide 20.4 mmol/L (21.0-32.0); Chloride 104 mmol/L (98-108); Creatinine, Serum 0.84 mg/dL (0.70-1.20); EST Glomerular Filtration Rate 84 (>60); Glucose 105 mg/dL (70-99); Potassium 3.5 mmol/L (3.3-5.1); Sodium Level 138 mmol/L (133-145)
[2024-07-26] MEDS: Vancomycin HCl 1,500 MG in 0.9% Normal Saline (500mL Bag) 500 ML 250 MG IV (08:27)
[2024-07-26] MEDS: 0.9% Saline Lock 10 ML Syringe IV ×2 (08:28→14:14)
[2024-07-26] MEDS: Enoxaparin 40 MG/0.4 ML Syringe SC ×2 (08:28→21:10)
[2024-07-26] MEDS: Furosemide 40 MG Tablet PO (08:28)
[2024-07-26] MEDS: Pramipexole Di-HCl 0.5 MG Tablet PO ×2 (08:29→21:11)
--- NOTE | 2024-07-26 08:52 | PN.HOSP_ITS ---
Reason for Visit Reason for Visit: Diagnoses Cutaneous abscess of abdominal wall (07/23/24) Cellulitis of abdominal wall (07/23/24) Cellulitis, unspecified (07/23/24) Personal history of other endocrine, nutritional and metabolic disease (07/23/24) Subjective Subjective Patient seen, wound cultures positive for Staph aureus final identification and sensitivities pending. Patient hemoglobin A1c came back at 6.9 Objective Data Objective Data Vital Signs: Vital Signs Temp Pulse Resp BP Pulse Ox O2 Del Method 98.5 F 73 18 158/85 H 96 Room Air 07/26/24 04:01 07/26/24 04:01 07/26/24 04:01 07/26/24 04:01 07/26/24 07:03 07/26/24 08:18 Oxygen Delivery Method Room Air Weight: 139.7 kg Body Mass Index (BMI) 46.1 Intake & Output: Intake and Output for Last 24 Hours 07/24/24 07/25/24 07/26/24 23:59 23:59 23:59 Intake Total 3939.50 / 3939.50 1860 / 1860 700 / 700 Balance 3939.50 / 3939.50 1860 / 1860 700 / 700 Lab / Micro Data 07/26/24 03:30 07/26/24 03:30 Labs: Laboratory Results - last 24 hr 07/25/24 04:50: WBC 14.6 H, RBC 3.98 L, Hgb 11.2 L, Hct 32.6 L, MCV 81.9, MCH 28.1, MCHC 34.4, RDW Std Deviation 43.9, RDW Coeff of Sia 14.6, Plt Count 242, MPV 10.3, Neut % (Auto) 71.9 H, Lymph % (Auto) 15.1 L, [place] % (Auto) 6.9, Eos % (Auto) 5.1 H, Baso % (Auto) 0.5, Absolute Neuts (auto) 10.5 H, Absolute Lymphs (auto) 2.21, Hemoglobin A1c 6.7 07/25/24 11:33: POC Glucose 107 H 07/25/24 16:42: POC Glucose 128 H 07/25/24 21:36: POC Glucose 120 H 07/26/24 03:30: WBC Cancelled 07/26/24 03:30: WBC 10.8, Corrected WBC Cancelled, RBC Cancelled 07/26/24 03:30: RBC 4.11 L, Hgb Cancelled 07/26/24 03:30: Hgb 11.4 L, Hct Cancelled 07/26/24 03:30: Hct 33.6 L, MCV Cancelled 07/26/24 03:30: MCV 81.8, MCH Cancelled 07/26/24 03:30: MCH 27.7, MCHC Cancelled 07/26/24 03:30: MCHC 33.9, RDW Std Deviation Cancelled 07/26/24 03:30: RDW Std Deviation 42.5, RDW Coeff of Sia Cancelled 07/26/24 03:30: RDW Coeff of Sia 14.3, Plt Count Cancelled 07/26/24 03:30: Plt Count 251, MPV Cancelled 07/26/24 03:30: MPV 10.4, Immature Gran % (Auto) Cancelled 07/26/24 03:30: Immature Gran % (Auto) 0.500, Neut % (Auto) Cancelled 07/26/24 03:30: Neut % (Auto) 68.3, Lymph % (Auto) Cancelled 07/26/24 03:30: Lymph % (Auto) 17.7 L, [place] % (Auto) Cancelled 07/26/24 03:30: [place] % (Auto) 6.0, Eos % (Auto) Cancelled 07/26/24 03:30: Eos % (Auto) 6.9 H, Baso % (Auto) Cancelled 07/26/24 03:30: Baso % (Auto) 0.6, Absolute Neuts (auto) Cancelled 07/26/24 03:30: Absolute Neuts (auto) 7.4, Absolute Lymphs (auto) Cancelled 07/26/24 03:30: Absolute Lymphs (auto) 1.90, Total Counted Cancelled, Neutrophils % (Manual) Cancelled, Band Neutrophils % Cancelled, Lymphocytes % (Manual) Cancelled, Monocytes % (Manual) Cancelled, Eosinophils % (Manual) Cancelled, Basophils % (Manual) Cancelled, Metamyelocytes % Cancelled, Myelocytes % Cancelled, Promyelocytes % Cancelled, Blast Cells % Cancelled, Plasma Cell % (Manual) Cancelled, Other Cells % Cancelled, Nucleated RBC % Cancelled 07/26/24 03:30: Nucleated RBC % 0, Nucleated RBCs/100 WBC Cancelled, Differential Comment Cancelled, Diff Path Review Cancelled, Hypersegmented Neuts Cancelled, Atypical Lymphocytes Cancelled, Reactive Lymphocytes Cancelled, Smudge Cells Cancelled, Toxic Granulation Cancelled, Toxic Vacuolation Cancelled, Dohle Bodies Cancelled, Armando Rods Cancelled, Platelet Estimate Cancelled, Plt Morphology Comment Cancelled, RBC Morphology Cancelled 07/26/24 03:30: RBC Morphology Cancelled, Polychromasia Cancelled, Hypochromasia Cancelled, Basophilic Stippling Cancelled, Anisocytosis Cancelled, Microcytosis Cancelled, Macrocytosis Cancelled, Spherocytes Cancelled, Sickle Cells Cancelled, Target Cells Cancelled, Tear Drop Cells Cancelled, Ovalocytes Cancelled, Stomatocytes Cancelled, Castro-[place] Bodies Cancelled, [place] Cells Cancelled, Bite Cells Cancelled, Crenated Cell Cancelled, Acanthocytes (Spur) Cancelled, Rouleaux Cancelled, Schistocytes Cancelled, Sodium 138, Potassium 3.5, Chloride 104, Carbon Dioxide 20.4 L, Anion Gap 14, BUN 11, Creatinine 0.84, Estim Creat Clear Calc 115.20, Est GFR (MDRD) Non-Af 84, BUN/Creatinine Ratio 13.7, Glucose 105 H, Calcium 8.6 07/26/24 06:22: POC Glucose 94 Micro: Microbiology 07/23/24 15:37 Blood Culture (Wb) - Anticubital Right Blood Culture - Preliminary No growth in 48 hours. 07/23/24 15:26 Blood Culture (Wb) - Left Wrist Blood Culture - Preliminary No growth in 48 hours. 07/24/24 Unknown Wound Abcess - Aerobic & Anaerobic Swabs Gram Stain - Final 07/24/24 Unknown Wound Abcess - Aerobic & Anaerobic Swabs Wound Culture - Preliminary Staphylococcus aureus 07/23/24 16:05 Urine, Clean Catch Urine Culture - Preliminary Culture exhibits no growth. 07/23/24 21:14 Nasal Secretion MRSA (PCR) - Final Meth. resistant Staph. aureus Physical Exam Narrative GENERAL: cooperative HEENT: Atraumatic; normocephalic EYES; Anicteric, Normal Conjunctiva NECK; supple, normal thyroid, RESPIRATORY: Diminished to auscultation CARDIOVASCULAR: Regular S1 S2, GI: soft, normoactive bowel sounds, : No Renal angle tenderness; EXTREMITIES: No edema, no clubbing, MUSCULOSKELETAL: no muscle wasting NEURO: Awake; no lateralizing signs. SKIN: An area of induration involving the left lower anterior abdominal wall with erythema and warmth PSYCH; Flat affect Assessment & Plan Assessment/Plan (1) Cellulitis: PLAN: Plan Patient is a 54-year-old female who presented with swelling and erythema involving the left anterior abdominal wall and assessment of abdominal wall cellulitis with abscess made admitted to regular nursing floor for subsequent management 1. Anterior abdominal wall cellulitis with abscess ? Patient started on broad-spectrum antibiotic therapy. Consult was placed to Dr. Polanco with plastic surgery for possible I&D ?07/25/2024 patient underwent bedside I&D by Dr. Polanco with plastic surgery. Culture sent result pending. Patient remains on broad-spectrum antibiotic therapy ? 07/26/2024; wound cultures positive for Staph aureus but identification and sensitivities pending 2. Class III obesity with BMI of 45.7 ? Complicating care weight loss advised 3. Diabetes mellitus type 2 ? Managed with diet ordered hemoglobin A1c patient placed on Accu-Cheks before meals and at bedtime with sliding scale coverage 4. Restless leg syndrome ? Patient is on ropinirole 5. Depression with anxiety ? Patient is on sertraline 6. Suspected obstructive sleep apnea ? Patient to undergo sleep study as outpatient 7. DVT prophylaxis ? On enoxaparin Time spent in the patient's overall evaluation,decision-making process, review of diagnostic data, adjustment of management, discussion with other providers, nursing nursing and ancillary staff involved in patient's care documentation, 36 Minutes Charges/Coding Visit Charges Inpatient E&M: 84284 Subs Hosp L2
[2024-07-26 10:00] VITALS: BP 147/88; PULSE 73; RESP 16; TEMP 36.5; O2SAT 99
[2024-07-26] MEDS: oxyCODONE 5 MG Tablet 10 MG PO ×2 (10:59→21:09)
[2024-07-26 11:34] LABS: Bedside Glucose 121 mg/dL (74-106)
[2024-07-26 14:17] VITALS: BP 126/61; PULSE 75; RESP 14; TEMP 36.8; O2SAT 97
--- NOTE | 2024-07-26 14:45 | PCM.PN.SRG ---
Subjective Subjective Reports less pain from cellulitis/wound today. Feeling better overall. Dressing changes are still quite painful. Objective Data Objective Data Vital Signs: Vital Signs Temp Pulse Resp BP Pulse Ox O2 Del Method 98.2 F 75 14 126/61 H 97 Room Air 07/26/24 14:17 07/26/24 14:17 07/26/24 14:17 07/26/24 14:17 07/26/24 14:17 07/26/24 14:17 Oxygen Delivery Method Room Air Weight: 307 lb 15.772 oz Body Mass Index (BMI) 46.1 Intake & Output: Intake and Output for Last 24 Hours 07/24/24 07/25/24 07/26/24 23:59 23:59 23:59 Intake Total 3939.50 / 3939.50 1860 / 1860 1280 / 1280 Balance 3939.50 / 3939.50 1860 / 1860 1280 / 1280 Lab / Micro Data 07/26/24 03:30 07/26/24 03:30 Labs: Laboratory Results - last 24 hr 07/25/24 16:42: POC Glucose 128 H 07/25/24 21:36: POC Glucose 120 H 07/26/24 03:30: WBC Cancelled 07/26/24 03:30: WBC 10.8, Corrected WBC Cancelled, RBC Cancelled 07/26/24 03:30: RBC 4.11 L, Hgb Cancelled 07/26/24 03:30: Hgb 11.4 L, Hct Cancelled 07/26/24 03:30: Hct 33.6 L, MCV Cancelled 07/26/24 03:30: MCV 81.8, MCH Cancelled 07/26/24 03:30: MCH 27.7, MCHC Cancelled 07/26/24 03:30: MCHC 33.9, RDW Std Deviation Cancelled 07/26/24 03:30: RDW Std Deviation 42.5, RDW Coeff of Sia Cancelled 07/26/24 03:30: RDW Coeff of Sia 14.3, Plt Count Cancelled 07/26/24 03:30: Plt Count 251, MPV Cancelled 07/26/24 03:30: MPV 10.4, Immature Gran % (Auto) Cancelled 07/26/24 03:30: Immature Gran % (Auto) 0.500, Neut % (Auto) Cancelled 07/26/24 03:30: Neut % (Auto) 68.3, Lymph % (Auto) Cancelled 07/26/24 03:30: Lymph % (Auto) 17.7 L, [place] % (Auto) Cancelled 07/26/24 03:30: [place] % (Auto) 6.0, Eos % (Auto) Cancelled 07/26/24 03:30: Eos % (Auto) 6.9 H, Baso % (Auto) Cancelled 07/26/24 03:30: Baso % (Auto) 0.6, Absolute Neuts (auto) Cancelled 07/26/24 03:30: Absolute Neuts (auto) 7.4, Absolute Lymphs (auto) Cancelled 07/26/24 03:30: Absolute Lymphs (auto) 1.90, Total Counted Cancelled, Neutrophils % (Manual) Cancelled, Band Neutrophils % Cancelled, Lymphocytes % (Manual) Cancelled, Monocytes % (Manual) Cancelled, Eosinophils % (Manual) Cancelled, Basophils % (Manual) Cancelled, Metamyelocytes % Cancelled, Myelocytes % Cancelled, Promyelocytes % Cancelled, Blast Cells % Cancelled, Plasma Cell % (Manual) Cancelled, Other Cells % Cancelled, Nucleated RBC % Cancelled 07/26/24 03:30: Nucleated RBC % 0, Nucleated RBCs/100 WBC Cancelled, Differential Comment Cancelled, Diff Path Review Cancelled, Hypersegmented Neuts Cancelled, Atypical Lymphocytes Cancelled, Reactive Lymphocytes Cancelled, Smudge Cells Cancelled, Toxic Granulation Cancelled, Toxic Vacuolation Cancelled, Dohle Bodies Cancelled, Armando Rods Cancelled, Platelet Estimate Cancelled, Plt Morphology Comment Cancelled, RBC Morphology Cancelled 07/26/24 03:30: RBC Morphology Cancelled, Polychromasia Cancelled, Hypochromasia Cancelled, Basophilic Stippling Cancelled, Anisocytosis Cancelled, Microcytosis Cancelled, Macrocytosis Cancelled, Spherocytes Cancelled, Sickle Cells Cancelled, Target Cells Cancelled, Tear Drop Cells Cancelled, Ovalocytes Cancelled, Stomatocytes Cancelled, [place] Bodies Cancelled, [place] Cells Cancelled, Bite Cells Cancelled, Crenated Cell Cancelled, Acanthocytes (Spur) Cancelled, Rouleaux Cancelled, Schistocytes Cancelled, Sodium 138, Potassium 3.5, Chloride 104, Carbon Dioxide 20.4 L, Anion Gap 14, BUN 11, Creatinine 0.84, Estim Creat Clear Calc 115.20, Est GFR (MDRD) Non-Af 84, BUN/Creatinine Ratio 13.7, Glucose 105 H, Calcium 8.6 07/26/24 06:22: POC Glucose 94 07/26/24 11:02: POC Glucose 121 H Micro: Microbiology 07/23/24 16:05 Urine, Clean Catch Urine Culture - Final Culture exhibits no growth. 07/24/24 Unknown Wound Abcess - Aerobic & Anaerobic Swabs Gram Stain - Final 07/24/24 Unknown Wound Abcess - Aerobic & Anaerobic Swabs Wound Culture - Final Meth. resistant Staph. aureus 07/23/24 15:37 Blood Culture (Wb) - Anticubital Right Blood Culture - Preliminary No growth in 48 hours. 07/23/24 15:26 Blood Culture (Wb) - Left Wrist Blood Culture - Preliminary No growth in 48 hours. 07/23/24 21:14 Nasal Secretion MRSA (PCR) - Final Meth. resistant Staph. aureus Physical Exam Narrative Wound examined. Minimal purulent drainage. Induration and redness is localized/no spread and improved since yesterday. No crepitus. Assessment & Plan Assessment/Plan (1) History of diabetes mellitus: (2) Abscess of skin of abdomen: (3) Abdominal wall cellulitis: PLAN: Plan MRSA on cultures agree with Vancomycin while inpatient Iodoform gauze twice daily (next dressing tonight) Plastic surgery will continue to follow WBC has normalized, patient with stable VS and afebrile. Heading in the right direction. Agree with possible DC tomorrow and OP follow up (plastics can see for F/U as outpatient) Charges/Coding Visit Charges Inpatient E&M: 23868 Subs Hosp L1
[2024-07-26] MEDS: Vancomycin Trough/Random Due 1 LAB MC (15:25)
[2024-07-26 16:04] LABS: Vancomycin, Trough Level 26.6 ug/mL (5.0-15.0)
--- NOTE | 2024-07-26 16:35 | PCM.RX.CS ---
Consult Antibiotic Management Pharmacy has been consulted to manage selected antibiotic: Vancomycin Type of Intervention Type of Consult: Follow-up Prior Doses of Antibiotics Prior Doses of Antibiotics Received/Current Regimen: current dose is vanc 1500mg IV q8h Labs Labs: Sodium 138 mmol/L (133-145) 07/26/24 03:30 Potassium 3.5 mmol/L (3.3-5.1) 07/26/24 03:30 Chloride 104 mmol/L (98-108) 07/26/24 03:30 Carbon Dioxide 20.4 mmol/L (21.0-32.0) L 07/26/24 03:30 Anion Gap 14 (5-15) 07/26/24 03:30 BUN 11 mg/dL (4-19) 07/26/24 03:30 Creatinine 0.84 mg/dL (0.70-1.20) 07/26/24 03:30 Est GFR (MDRD) Non-Af 84 (>60) 07/26/24 03:30 BUN/Creatinine Ratio 13.7 RATIO (10-20) 07/26/24 03:30 Glucose 105 mg/dL (70-99) H 07/26/24 03:30 Vancomycin Trough 26.6 ug/mL (5.0-15.0) H 07/26/24 15:25 Microbiology Microbiology: Microbiology 07/23/24 16:05 Urine, Clean Catch Urine Culture - Final Culture exhibits no growth. 07/24/24 Unknown Wound Abcess - Aerobic & Anaerobic Swabs Gram Stain - Final 07/24/24 Unknown Wound Abcess - Aerobic & Anaerobic Swabs Wound Culture - Final Meth. resistant Staph. aureus 07/23/24 15:37 Blood Culture (Wb) - Anticubital Right Blood Culture - Preliminary No growth in 48 hours. 07/23/24 15:26 Blood Culture (Wb) - Left Wrist Blood Culture - Preliminary No growth in 48 hours. 07/23/24 21:14 Nasal Secretion MRSA (PCR) - Final Meth. resistant Staph. aureus Dosing Weight Weight used for dosin.7 kg Estimated Creatinine Clearance Estimated Creatinine Clearance: 115 ml/min Goal Trough Goal Trough: 15-20 mcg/mL Pharmacy Plan for Drug Dosing Pharmacy Plan for Drug Dosing: The vanc trough drawn at 15:25 today (approx 7 hours after the previous dose) was 26.6. This is above goal range so will hold current dose. Will order a random level to be drawn tomorrow morning. That level will be used to determine if dosing can be resumed tomorrow morning. Pharmacy Service will continue to monitor and adjust dosing as required. Follow-Up Labs Follow-Up Labs: Trough: Vancomycin (random) Date/Time Labs Ordered Labs to be done on [date and time ordered]: 07/27/24 06:00
[2024-07-26 16:47] LABS: Bedside Glucose 93 mg/dL (74-106)
[2024-07-26] MEDS: Sertraline 100 MG Tablet 150 MG PO (21:22)
[2024-07-26 21:51] LABS: Bedside Glucose 104 mg/dL (74-106)
[2024-07-26 22:03] VITALS: BP 156/90; PULSE 73; RESP 14; TEMP 37; O2SAT 94
[2024-07-27 03:47] VITALS: BMI 46.0
[2024-07-27 04:00] VITALS: BP 137/80; PULSE 76; RESP 14; TEMP 36.9; O2SAT 95
[2024-07-27] MEDS: Acetaminophen 325 MG Tablet 650 MG PO (05:25)
[2024-07-27] MEDS: oxyCODONE 5 MG Tablet 10 MG PO (05:26)
[2024-07-27] MEDS: Piperacil/Tazobactam 3.375 GM in 0.9% Normal Saline (50mL MB+) 50 ML IV (06:55)
[2024-07-27 07:15] LABS: Bedside Glucose 99 mg/dL (74-106)
--- NOTE | 2024-07-27 07:30 | PCM.PN.SRG ---
Subjective Subjective Doing well. Still some pain with dressing changes, but improving overall. Objective Data Objective Data Vital Signs: Vital Signs Temp Pulse Resp BP Pulse Ox O2 Del Method 98.4 F 76 14 137/80 H 95 Room Air 07/27/24 04:00 07/27/24 04:00 07/27/24 04:00 07/27/24 04:00 07/27/24 04:00 07/27/24 04:00 Oxygen Delivery Method Room Air Weight: 306 lb 14.135 oz Body Mass Index (BMI) 46.0 Intake & Output: Intake and Output for Last 24 Hours 07/25/24 07/26/24 07/27/24 23:59 23:59 23:59 Intake Total 1860 / 1860 1490.50 / 1740.50 500 / 500 Balance 1860 / 1860 1490.50 / 1740.50 500 / 500 Lab / Micro Data 07/26/24 03:30 07/26/24 03:30 Labs: Laboratory Results - last 24 hr 07/26/24 03:30: Sodium 138, Potassium 3.5, Chloride 104, Carbon Dioxide 20.4 L, Anion Gap 14, BUN 11, Creatinine 0.84, Estim Creat Clear Calc 115.20, Est GFR (MDRD) Non-Af 84, BUN/Creatinine Ratio 13.7, Glucose 105 H, Calcium 8.6 07/26/24 11:02: POC Glucose 121 H 07/26/24 15:25: Vancomycin Trough 26.6 H 07/26/24 16:24: POC Glucose 93 07/26/24 21:14: POC Glucose 104 07/27/24 06:55: POC Glucose 99 Micro: Microbiology 07/24/24 Unknown Wound Abcess - Aerobic & Anaerobic Swabs Gram Stain - Final 07/24/24 Unknown Wound Abcess - Aerobic & Anaerobic Swabs Wound Culture - Final Meth. resistant Staph. aureus 07/24/24 Unknown Wound Abcess - Aerobic & Anaerobic Swabs Anaerobic Culture - Preliminary Checking for anaerobes, further studies to follow. 07/23/24 16:05 Urine, Clean Catch Urine Culture - Final Culture exhibits no growth. 07/23/24 15:37 Blood Culture (Wb) - Anticubital Right Blood Culture - Preliminary No growth in 48 hours. 07/23/24 15:26 Blood Culture (Wb) - Left Wrist Blood Culture - Preliminary No growth in 48 hours. 07/23/24 21:14 Nasal Secretion MRSA (PCR) - Final Meth. resistant Staph. aureus Physical Exam Narrative Wound examined. No purulent drainage. Induration and redness is localized/no spread and improved since yesterday. The area of cellulitis is receding within the area of previous marking. No crepitus. Assessment & Plan Assessment/Plan (1) History of diabetes mellitus: (2) Abscess of skin of abdomen: (3) Abdominal wall cellulitis: PLAN: Plan MRSA on cultures agree with Vancomycin while inpatient, with transition to PO (Doxy?) Iodoform gauze twice daily (next dressing tonight) Plastic surgery will continue to follow WBC has normalized, patient with stable VS and afebrile. Heading in the right direction. Agree with possible DC today and OP follow up (plastics can see for F/U as outpatient later this week) Charges/Coding Multi Select Codes Visit Charges Visit Charges: 66797 Subs Hosp L1
[2024-07-27 07:48] LABS: Absolute Lymphocyte Count 1.74 X10^3/uL (0.83-4.51); Absolute Neutrophil Count 6.3 X10^3/uL (2.0-7.7); Basophil# 0.09 X10^3/uL; Basophil% 0.9 % (0-1); Eosinophil# 0.66 X10^3/uL; Eosinophils% 6.9 % (0-5); Hematocrit 35.3 % (37-47); Hemoglobin 12.1 g/dL (12.0-15.0); Lymphocyte # 1.74 X10^3/ul (0.83-4.51); Lymphocyte % 18.1 % (19-41); Mean Corp Hgb Conc 34.3 g/dL (32-36); Mean Corpuscular Hgb 27.8 pg (27.0-32.0); Mean Platelet Vol. 9.9 fl (6.2-12.0); Monocyte# 0.71 X10^3/uL; Monocyte% 7.4 % (0-10); NRBC Flagged by Analyzer 0 % (0-5); Neutrophil # 6.34 X10^3/uL (2.7-7.7); Neutrophil % 65.9 % (47-70); Platelet Count 323 K/mm3 (150-450); RBC Distribution Width CV 14.1 % (11.6-14.6); RBC Distribution Width SD 41.9 fl (35.1-43.9); Red Blood Count 4.36 M/mm3 (4.2-5.4); White Blood Count 9.6 K/mm3 (4.4-11.0)
[2024-07-27 07:58] LABS: Vancomycin, Random Level 11.1 ug/mL (0.0-15.0)
[2024-07-27 08:13] LABS: Anion Gap 14 (5-15); BUN 10 mg/dL (4-19); BUN/Creat Ratio 12.4 RATIO (10-20); Calcium,Total 9.2 mg/dL (7.6-11.0); Carbon Dioxide 23.4 mmol/L (21.0-32.0); Chloride 101 mmol/L (98-108); Creatinine, Serum 0.79 mg/dL (0.70-1.20); EST Glomerular Filtration Rate 89 (>60); Estimated Creatinine Clearance 122.24 ml/min (50-250); Glucose 97 mg/dL (70-99); Potassium 3.3 mmol/L (3.3-5.1); Sodium Level 139 mmol/L (133-145)
--- NOTE | 2024-07-27 08:19 | PCM.RX.CS ---
Consult Antibiotic Management Pharmacy has been consulted to manage selected antibiotic: Vancomycin Type of Intervention Type of Consult: Follow-up Suspected Infection Suspected Infection: Skin/Soft tissue Prior Doses of Antibiotics Prior Doses of Antibiotics Received/Current Regimen: Vancomycin 1500 mg Q8H last dose given 07/26/24 @ 0827 Labs Labs: Sodium 139 mmol/L (133-145) 07/27/24 06:36 Potassium 3.3 mmol/L (3.3-5.1) 07/27/24 06:36 Chloride 101 mmol/L (98-108) 07/27/24 06:36 Carbon Dioxide 23.4 mmol/L (21.0-32.0) 07/27/24 06:36 Anion Gap 14 (5-15) 07/27/24 06:36 BUN 10 mg/dL (4-19) 07/27/24 06:36 Creatinine 0.79 mg/dL (0.70-1.20) 07/27/24 06:36 Est GFR (MDRD) Non-Af 89 (>60) 07/27/24 06:36 BUN/Creatinine Ratio 12.4 RATIO (10-20) 07/27/24 06:36 Glucose 97 mg/dL (70-99) 07/27/24 06:36 Vancomycin Trough 26.6 ug/mL (5.0-15.0) H 07/26/24 15:25 Random Vancomycin 11.1 ug/mL (0.0-15.0) 07/27/24 06:36 Microbiology Microbiology: Microbiology 07/24/24 Unknown Wound Abcess - Aerobic & Anaerobic Swabs Gram Stain - Final 07/24/24 Unknown Wound Abcess - Aerobic & Anaerobic Swabs Wound Culture - Final Meth. resistant Staph. aureus 07/24/24 Unknown Wound Abcess - Aerobic & Anaerobic Swabs Anaerobic Culture - Preliminary Checking for anaerobes, further studies to follow. 07/23/24 16:05 Urine, Clean Catch Urine Culture - Final Culture exhibits no growth. 07/23/24 15:37 Blood Culture (Wb) - Anticubital Right Blood Culture - Preliminary No growth in 48 hours. 07/23/24 15:26 Blood Culture (Wb) - Left Wrist Blood Culture - Preliminary No growth in 48 hours. 07/23/24 21:14 Nasal Secretion MRSA (PCR) - Final Meth. resistant Staph. aureus Dosing Weight Weight used for dosin kg Estimated Creatinine Clearance Estimated Creatinine Clearance: ~ 122 Goal Trough Goal Trough: 15-20 mcg/mL Pharmacy Plan for Drug Dosing Pharmacy Plan for Drug Dosing: Vancomycin random level = 11.1, resume dosing with 1000 mg Q8H Pharmacy Service will continue to monitor and adjust dosing as required. Follow-Up Labs Follow-Up Labs: Trough: Vancomycin Date/Time Labs Ordered Labs to be done on [date and time ordered]: 07/28/24 @ 8203
--- NOTE | 2024-07-27 09:07 | PN.HOSP_ITS ---
Reason for Visit Reason for Visit: Diagnoses Cutaneous abscess of abdominal wall (07/23/24) Cellulitis of abdominal wall (07/23/24) Cellulitis, unspecified (07/23/24) Personal history of other endocrine, nutritional and metabolic disease (07/23/24) Subjective Subjective Feeling well. Anxious to go home. Objective Data Objective Data Vital Signs: Vital Signs Temp Pulse Resp BP Pulse Ox O2 Del Method 36.9 C 76 14 137/80 H 95 Room Air 07/27/24 04:00 07/27/24 04:00 07/27/24 04:00 07/27/24 04:00 07/27/24 04:00 07/27/24 04:00 Oxygen Delivery Method Room Air Weight: 139.2 kg Body Mass Index (BMI) 46.0 Intake & Output: Intake and Output for Last 24 Hours 07/25/24 07/26/24 07/27/24 23:59 23:59 23:59 Intake Total 1860 / 1860 1490.50 / 1740.50 500 / 500 Balance 1860 / 1860 1490.50 / 1740.50 500 / 500 Lab / Micro Data 07/27/24 06:36 07/27/24 06:36 Labs: Laboratory Results - last 24 hr 07/26/24 11:02: POC Glucose 121 H 07/26/24 15:25: Vancomycin Trough 26.6 H 07/26/24 16:24: POC Glucose 93 07/26/24 21:14: POC Glucose 104 07/27/24 06:36: WBC 9.6, RBC 4.36, Hgb 12.1, Hct 35.3 L, MCV 81.0, MCH 27.8, MCHC 34.3, RDW Std Deviation 41.9, RDW Coeff of Sia 14.1, Plt Count 323, MPV 9.9, Immature Gran % (Auto) 0.800, Neut % (Auto) 65.9, Lymph % (Auto) 18.1 L, [place] % (Auto) 7.4, Eos % (Auto) 6.9 H, Baso % (Auto) 0.9, Absolute Neuts (auto) 6.3, Absolute Lymphs (auto) 1.74, Nucleated RBC % 0, Sodium 139, Potassium 3.3, Chloride 101, Carbon Dioxide 23.4, Anion Gap 14, BUN 10, Creatinine 0.79, Estim Creat Clear Calc 122.24, Est GFR (MDRD) Non-Af 89, BUN/Creatinine Ratio 12.4, Glucose 97, Calcium 9.2, Random Vancomycin 11.1 07/27/24 06:55: POC Glucose 99 Micro: Microbiology 07/24/24 Unknown Wound Abcess - Aerobic & Anaerobic Swabs Gram Stain - Final 07/24/24 Unknown Wound Abcess - Aerobic & Anaerobic Swabs Wound Culture - Final Meth. resistant Staph. aureus 07/24/24 Unknown Wound Abcess - Aerobic & Anaerobic Swabs Anaerobic Culture - Preliminary Checking for anaerobes, further studies to follow. 07/23/24 16:05 Urine, Clean Catch Urine Culture - Final Culture exhibits no growth. 07/23/24 15:37 Blood Culture (Wb) - Anticubital Right Blood Culture - Preliminary No growth in 48 hours. 07/23/24 15:26 Blood Culture (Wb) - Left Wrist Blood Culture - Preliminary No growth in 48 hours. 07/23/24 21:14 Nasal Secretion MRSA (PCR) - Final Meth. resistant Staph. aureus Physical Exam Const alert and no apparent distress HEENT head/scalp atraumatic and moist oral mucous membranes Resp normal respiratory effort, no retractions, no use of accessory muscles and clear to auscultation bilaterally Cardio regular rate and regular rhythm GI GI Narrative: abdominal wound bandaged--did not remove. Assessment & Plan Assessment/Plan (1) Abscess of skin of abdomen: PLAN: s/p I+D on 07/24 by plastics Culture positive for MRSA, sensitive for Doxycycline, linezolid, vancomycin. Currently on pip/tazo and vanc. DC pip/tazo. Continue vanc while in the hospital. DC with doxycycline. PLAN: Plan Obesity class III: complicates care and recovery. depression: SSRI VTE prophylaxis: LMWH. DC home.
[2024-07-27 10:00] VITALS: BP 110/65; PULSE 71; RESP 18; TEMP 36.6; O2SAT 93
[2024-07-27] MEDS: Enoxaparin 40 MG/0.4 ML Syringe SC (10:10)
[2024-07-27] MEDS: Furosemide 40 MG Tablet PO (10:10)
[2024-07-27] MEDS: Pramipexole Di-HCl 0.5 MG Tablet PO (10:10)
[2024-07-27] MEDS: Vancomycin IV 1,000 MG/200 ML BAG 200 MG IV (10:30)
--- NOTE | 2024-07-27 10:57 | PCM.DC.SUM ---
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 Currently on pip/tazo and vanc. DC pip/tazo. Continue vanc while in the hospital. DC with doxycycline. Plan Obesity class III: complicates care and recovery. depression: SSRI VTE prophylaxis: LMWH. DC home. Medications at Discharge Home Medications albuterol sulfate 90 mcg/actuation aerosol inhaler 2 puff inhalation Q4H PRN shortness of breath or wheezing 02/26/24 furosemide 40 mg tablet (Lasix) 40 mg PO QDAY 02/26/24 ibuprofen 200 mg tablet 400 mg PO BID 02/26/24 ropinirole 1 mg tablet 1 mg PO BID 02/26/24 sertraline 100 mg tablet (Zoloft) 150 mg PO QHS 02/26/24 doxycycline monohydrate 100 mg capsule 100 mg PO BID #10 caps 07/27/24 iodoform 1 X 5 yard bandage #2 ea 07/27/24 Hospital Course Operations - (I+D of abdominal abscess. ) Summary of Care Provided Hospital Course: Presents with redness in her left lower quadrant of her abdomen. Stated that prior was very small but then progressed. Patient underwent an I&D on the fourth that grew out MRSA from the abscess. Patient will be discharged today with outpatient follow-up with plastic surgery. Patient to utilize iodoform gauze twice daily Weight / BMI Weight Weight: 139.2 kg Body Mass Index (BMI) 46.0 ABG / Lab / Microbiology Data 07/27/24 06:36 07/27/24 06:36 Laboratory: Laboratory Results - last 24 hr 07/26/24 11:02: POC Glucose 121 H 07/26/24 15:25: Vancomycin Trough 26.6 H 07/26/24 16:24: POC Glucose 93 07/26/24 21:14: POC Glucose 104 07/27/24 06:36: WBC 9.6, RBC 4.36, Hgb 12.1, Hct 35.3 L, MCV 81.0, MCH 27.8, MCHC 34.3, RDW Std Deviation 41.9, RDW Coeff of Sia 14.1, Plt Count 323, MPV 9.9, Immature Gran % (Auto) 0.800, Neut % (Auto) 65.9, Lymph % (Auto) 18.1 L, [place] % (Auto) 7.4, Eos % (Auto) 6.9 H, Baso % (Auto) 0.9, Absolute Neuts (auto) 6.3, Absolute Lymphs (auto) 1.74, Nucleated RBC % 0, Sodium 139, Potassium 3.3, Chloride 101, Carbon Dioxide 23.4, Anion Gap 14, BUN 10, Creatinine 0.79, Estim Creat Clear Calc 122.24, Est GFR (MDRD) Non-Af 89, BUN/Creatinine Ratio 12.4, Glucose 97, Calcium 9.2, Random Vancomycin 11.1 07/27/24 06:55: POC Glucose 99 Microbiology: Microbiology 07/24/24 Unknown Wound Abcess - Aerobic & Anaerobic Swabs Gram Stain - Final 07/24/24 Unknown Wound Abcess - Aerobic & Anaerobic Swabs Wound Culture - Final Meth. resistant Staph. aureus 07/24/24 Unknown Wound Abcess - Aerobic & Anaerobic Swabs Anaerobic Culture - Preliminary Checking for anaerobes, further studies to follow. 07/23/24 16:05 Urine, Clean Catch Urine Culture - Final Culture exhibits no growth. 07/23/24 15:37 Blood Culture (Wb) - Anticubital Right Blood Culture - Preliminary No growth in 48 hours. 07/23/24 15:26 Blood Culture (Wb) - Left Wrist Blood Culture - Preliminary No growth in 48 hours. 07/23/24 21:14 Nasal Secretion MRSA (PCR) - Final Meth. resistant Staph. aureus D/C Instructions Discharge Diet: No restrictions DC O2, CPAP, BIPAP Needs Home O2 Discharge instructions: No Meaningful Use Info Meaningful Use Meaningful Use Diagnoses (Choose all that apply): None applicable Ischemic Stroke Statin Dosing Therapy Reference: STATIN DOSE THERAPY REFERENCE: * Patients > 75 years receive moderate or high dose statin therapy. * Patients 75 years or YOUNGER should receive HIGH intensity statin dose unless contraindicated. You will be required to document reason for non-treatment if statin daily dose does not meet guidelines. HIGH DOSE STATIN THERAPY DAILY Atorvastatin > than or = to 40 mg Rosuvastatin > than or = to 20 mg Amlodipine + Atorvastatin > than or = to 2.5/40 mg Ezetimibe + Simvastatin 10/80 mg Simvastatin 80mg Discharge Plan Admission Admit Date/Time: 07/23/24 19:17 Primary Reason for Your Visit: Abdominal wall abscess and cellulitis Attending Provider: Jas Joshua Primary Care Provider: Lavonne Olsen Consulting Providers: Denice Moreno; Mic Polanco; Justice Leonardo Instructions Additional Instructions / Restrictions: Keep your wound clean and dry. Use iodoform gauze twice daily with the next dressing change this evening Discharge Orders/Prescriptions Prescriptions: New doxycycline monohydrate 100 mg capsule 100 mg PO BID Qty: 10 0RF (DME) iodoform 1 X 5 -yard bandage See Rx Instructions .Route Qty: 2 0RF Rx Instructions: As directed Continued albuterol sulfate 90 mcg/actuation HFA aerosol inhaler 2 puff inhalation Q4H PRN (Reason: shortness of breath or wheezing) furosemide [Lasix] 40 mg tablet 40 mg PO QDAY ropinirole 1 mg tablet 1 mg PO BID sertraline [Zoloft] 100 mg tablet 150 mg PO QHS ibuprofen 200 mg tablet 400 mg PO BID Referrals / Follow Up: Mic Polanco MD [Med Staff - Active Staff] - Within 1 Week Lavonne Olsen NP-C [Primary Care Provider] - Within 2 Weeks Disposition Disposition (needs filled in before D/C Order can be placed): Home, Self Care Charges/Coding Visit Charges Inpatient E&M: 51531 Disch Hosp
--- NOTE | 2024-07-27 11:07 | CASEMGMT ---
Patient has order for discharge. RN CM into discuss needs at discharge. Patient states she is able to do her own dressing changes. Patient denies needs or help at discharge. Patient had no further needs or concerns.
[2024-07-27 11:12] VITALS: BP 110/65; PULSE 71; RESP 18; TEMP 36.6; O2SAT 93
== END 2024-07-27 12:08 | disposition home or self-care (01) | DRG 603 ==
LOC: ED 15:59 → PCU 19:35
PROVIDERS: Internal Medicine; Admitting Provider Family Medicine; Emergency Provider Emergency Medicine; PCP Nurse Practitioner Family
DX: L02.211 Cutaneous abscess of abdominal wall (principal); E87.20 Acidosis, unspecified; Z68.42 Body mass index [BMI] 45.0-49.9, adult; E11.628 Type 2 diabetes mellitus with other skin complications; D72.829 Elevated white blood cell count, unspecified; E28.2 Polycystic ovarian syndrome; B95.62 Methicillin resistant Staphylococcus aureus infection as the cause of diseases classified elsewhere; I11.0 Hypertensive heart disease with heart failure; K76.0 Fatty (change of) liver, not elsewhere classified; G25.81 Restless legs syndrome; E78.00 Pure hypercholesterolemia, unspecified; I50.9 Heart failure, unspecified; G47.33 Obstructive sleep apnea (adult) (pediatric); F41.8 Other specified anxiety disorders; L73.2 Hidradenitis suppurativa; E66.813 Obesity, class 3; Z82.49 Family history of ischemic heart disease and other diseases of the circulatory system; Z79.2 Long term (current) use of antibiotics; Z91.048 Other nonmedicinal substance allergy status; Z88.8 Allergy status to other drugs, medicaments and biological substances; R00.0 Tachycardia, unspecified; Z79.51 Long term (current) use of inhaled steroids; Z79.1 Long term (current) use of non-steroidal anti-inflammatories (NSAID)
CPT/HCPCS: 36415; 74177; 80048; 80053; 80202; 81001; 82962; 83036; 83605; 83735; 84100; 85025; 85610; 85730; 87040; 87070; 87075; 87077; 87086; 87149; 87186; 87205; 87641; 94668; 99285; Q9967; A4216; J2405

== ENCOUNTER 2024-09-07 08:30 | Outpatient (RCR) | payer BC, SELFPAY ==
[2024-08-31 13:12] VITALS: BP 139/92; PULSE 86; RESP 18; TEMP 36.2; BMI 41.1
--- NOTE | 2024-08-31 14:21 | HP.PCM_ITS ---
History of Present Illness Date of Service: 08/31/24 History of Wound: MARYBEL MCKINNEY is a delightful 54-year-old female who presents with history of type 2 diabetes with A1c of 6.9 who was admitted to the medicine service overnight (23 July 2024) l for eft lower quadrant abdominal cellulitis/abscess. CT scan from yesterday demonstrated isolated cellulitis and she was placed on vancomycin and Zosyn as she was febrile to 100.9 and tachycardic to 103 with a white blood cell count of 20,000. Patient denies any history of trauma to the area but noticed a small pustule forming on Saturday, 20 July 2023, and the pain and swelling around this pustule got worse over the last several days. The pain is sharp and severe and worsened by movements and improved with rest. She is not a smoker. Of note she has a history of hidradenitis 30 July 2024: Patient doing well overall. She was discharged on Saturday, 27 July 2024, on doxycycline. She feels like her pain has improved greatly and there is less drainage. She has been compliant with packing. She has a prescription for doxycycline through Saturday, 01 August 2024. clinic follow-up, 28 Aug 2024: Patient missed several appointments secondary to a family emergency and has not been seen in follow-up for about a month. She reports that she has a persistent wound. There is no drainage but it is still relatively deep. No fevers or chills Current encounter, wound care center, 31 Aug 2024: Doing well overall. Reports that she has been doing the dressing changes at home. Reports that the wound has gotten smaller since her last visit [facility] Medical History History of diabetes mellitus MRSA (methicillin resistant staph aureus) culture positive Congestive heart failure (CHF) Wears glasses Post-menopausal Anxiety Diabetes Arthritis High cholesterol Easy bruising Migraine headache Restless legs Non-smoker Shortness of breath on exertion History of edema History of stress test History of CHF (congestive heart failure) Hypertension Hx of cyst of breast Hyperlipidemia PCOS (polycystic ovarian syndrome) Thyroid goiter Asthma Depression Home Medications ?Medication ?Instructions ?Recorded ?Last Taken ?Type albuterol sulfate 90 mcg/actuation 2 puff inhalation Q 4H PRN 02/26/24 07/22/24 History aerosol inhaler shortness of breath or wheez ing furosemide 40 mg tablet (Lasix) 40 mg PO QDAY diuretic 02/26/24 07/23/24 History sertraline 100 mg tablet (Zoloft) 150 mg PO QHS mental health 02/26/24 07/22/24 History iodoform 1 X 5 yard bandage #2 ea 07/27/24 Unknown Rx Allergy/AdvReac Type Severity Reaction Status Date / Time niacin Allergy Hives Verified 08/28/24 08:59 adhesive AdvReac Rash Verified 08/28/24 08:59 Family History Brother Stomach cancer Esophageal cancer Mother Heart disease CAD (coronary artery disease) Kidney disease Father CAD (coronary artery disease) Heart disease Hypertension Myocardial infarction Ruptured abdominal aortic aneurysm Other Diabetes Surgical History Hx of oral surgery Hx of tonsillectomy Social History household members: other details: Roommate current occupational status: employed Smoking Status: Never smoker alcohol intake: never substance use type: does not use Vital Signs Vital Signs Vital Signs: 08/31/24 13:12 Temperature 97.2 F L Temperature Source Temporal Pulse Rate 86 Respiratory Rate 18 Blood Pressure 139/92 H Blood Pressure Mean 107 Blood Pressure Source Monitor Weight Weight: 270 lb 3.969 oz Body Mass Index (BMI) 41.1 Physical Exam Narrative Periwound with some skin irritation from the tape that is now improving The wound is approximately 1 cm deep into the subcutaneous tissue; however, a large piece of packing was removed and the wound was 2 cm deep (nursing reports that they removed a piece of packing while rooming the patient this afternoon, so this was retained packing). There is no purulent drainage. There is some fibrinous exudate and biofilm at the base of the wound. Wound opening overall measures 1 x 0.5 cm Const alert and oriented x3 Debridement Note Debridement Note Wound debrided: Left lower quadrant abdominal wound Laterality: Left Wound Grade/Stage: Stage III Type of Debridement: Excisional debridement Anesthesia Used: 4% Lidocaine Solution and - (9 cc of 1% lidocaine with 1- 200,000 epinephrine) Depth: in the subcutaneous layer Percentage of wound debrided: 100 Instrument Used: 7mm curette Tissue Removed: Retained packing (iodoform), necrotic fat, abscess cavity rind Severity: Fat Layer Exposed Amount of bleeding with debridement: Moderate Bleeding Controlled with: Compression and gauze and - (Epinephrine from the local helped with hemostasis) Patient tolerated procedure: Patient tolerated procedure well Post-Debridement Measurements and Additional Note: Post-Debridement Measurements/Treatment WC - Nurse 1 - General Ulcer Assessment Start: 08/31/24 13:12 Freq: Status: Active Protocol: CRISTIAN Activity Type Activity Date Activity User E-sign Co-sign Detail Recorded Client Recorded Date Recorded By Document 08/31/24 13:12 DL [id number] 08/31/24 13:21 DL 08/31/24 13:12 WC - Today's Visit Information Type of service Initial Visit Arrival Mode Ambulatory Transfer Assistance None Patient Identification Verified (Name & Yes ) Patient Requires Transmission-Based No Precautions Height and Weight Height 5 ft 8 in Weight 270 lb 3.969 oz Weight in Pounds 270.2 lbs Weight Measurement Method Estimated by Patient Body Mass Index (BMI) 41.1 BMI Classification Obese Vital Signs Temperature (97.8 F-99.1 F) 97.2 F L Temperature Source Temporal Pulse Rate (60-100) 86 Pulse Location Monitor Respiratory Rate (12-18) 18 Respiratory rate source Observation Blood Pressure (90/60-120/80) 139/92 H Blood Pressure Mean 107 Source Monitor Pain Scale: 0-10 Numeric Is Patient Pain Free? 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 Fermenter Operator to contact place of sabianism No Teaching: Wound Center Dressing Your Wound -Person Taught Patient *Welcome to the Wound Center -Person Taught Patient WC - Nurse 1 - General Ulcer Measurement Start: 08/31/24 13:12 Freq: Status: Active Protocol: Activity Type Activity Date Activity User E-sign Co-sign Detail Recorded Client Recorded Date Recorded By Document 08/31/24 13:12 DL [id number] 08/31/24 13:21 DL 08/31/24 13:12 Wound Center Nurse 1 #1 ABD -Current Size (cm) - Length 0.5 -Current Size (cm) - Width 1 -Current Size (cm) - Depth 1.5 -Total Square Cm 0.5 -Photo Taken Yes -Exudate Amt Medium -Exudate Type Serosanguineous -Wound Margin Distinct, Outline Attached -Granulation Amt Medium (34-66%) -Granulation Quality Red -Necrosis Amt Medium (34-66%) -Necrotic Tissue Type Adherent Slough -Structure Exposed N/A -Texture (Amara-wound Skin Appearance) Scarring,Rash -Moisture (Amara-wound Skin Appearance) No Abnormality -Color (Amara-wound Skin Appearance) No Abnormality -Temperature (Amara-wound Skin No Abnormality Appearance) (Pt Warm) -Tenderness on Palpation (Amara-wound No Skin Appearance) -Ulcer Cleansing Soap and Water -Foul Odor after Cleansing No -Anesthetic Used 5% Lidocaine Gel WC - Nurse 2 - General Ulcer CM Notes Start: 08/31/24 13:12 Freq: Status: Active Protocol: Activity Type Activity Date Activity User E-sign Co-sign Detail Recorded Client Recorded Date Recorded By Document 08/31/24 13:52 JF [id number] 08/31/24 13:55 JF 08/31/24 13:52 Wound Center Nurse 2 -Time 13:52 -Correct Patient Yes -Correct Side, Site, Position Yes -Correct Procedure Yes -Procedure Performed Yes -Type of Procedure Debridement -Clinical Debridement Subcutaneous -Tissue Removed Subcutaneous -Post Debridement (cm) - Length 1.0 -Post Debridement (cm) - Width 0.5 -Post Debridement (cm) - Depth 2.0 -Total Square (Post) (cm) 0.50 -Area of Debridement (cm) - Length 1.0 -Area of Debridement (cm) - Width 0.5 -Total Square (Area) (cm) 0.50 -Tunneling No -Undermining/Tunneling No -Circular Undermining No -Wound/Ulcer Outcome Not Healed -Ulcer Cleansing Rinsed/ Irrigated with Saline -Foul Odor after Cleansing No -Bioengineered Tissue No -Bleeding Controlled with Pressure -Treatment Response Procedure Tolerated Well -Offloading No -Debridement - Subq, 1st 20sq cm Yes Pain Scale: 0-10 Numeric Is Patient Pain Free? Yes WC - Nurse 3 - General Ulcer D/C NN Start: 08/31/24 13:12 Freq: Status: Active Protocol: Activity Type Activity Date Activity User E-sign Co-sign Detail Recorded Client Recorded Date Recorded By Document 08/31/24 14:07 DL [id number] 08/31/24 14:08 DL 08/31/24 14:07 Wound Care Center Nurse 3 #1 ABD -Ulcer Cleansing Rinsed/ Irrigated with Saline -Foul Odor after Cleansing No -Primary Dressing Applied Nugauze, Iodoform 1/4in -Primary Dressing Covered/Secured with Dry Gauze, Secured with Tape -Nugauze, Iodoform 1/4 1 Treatment Response Procedure Tolerated Well Pain Scale: 0-10 Numeric Is Patient Pain Free? Yes WC - Visit Discharge Discharge Condition Stable Ambulatory Status Ambulatory Transportation Private Auto Charges/Coding Procedures Integumentary [id number]: [id number] Monae subq tissue 20 sq cm/< Assessment/Plan Assessment/Plan (1) Wound of abdomen: CODE(S): S31.109A - Unspecified open wound of abdominal wall, unspecified quadrant without penetration into peritoneal cavity, initial encounter PLAN: Continue BID packing changes with iodoform with Dakin's Given return precautions. Discussed importance of single strip of packing so that we do not retain any iodoform. Patient reports that she always puts in 1 piece of packing, so unclear as to how long the packing has been in the wound. Removal of this packing should help the wound heal. Follow-up in 1 week at the wound care center. Patient happy with the plan
--- NOTE | 2024-09-02 09:42 | WC ---
PHOTO 08/31/24 ABD
--- NOTE | 2024-09-07 08:08 | PN.PCM_ITS ---
History of Present Illness Date of Service: 09/07/24 History of Wound: MARYBEL MCKINNEY is a delightful 54-year-old female who presents with history of type 2 diabetes with A1c of 6.9 who was admitted to the medicine service overnight (23 July 2024) l for eft lower quadrant abdominal cellulitis/abscess. CT scan from yesterday demonstrated isolated cellulitis and she was placed on vancomycin and Zosyn as she was febrile to 100.9 and tachycardic to 103 with a white blood cell count of 20,000. Patient denies any history of trauma to the area but noticed a small pustule forming on Saturday, 20 July 2023, and the pain and swelling around this pustule got worse over the last several days. The pain is sharp and severe and worsened by movements and improved with rest. She is not a smoker. Of note she has a history of hidradenitis 30 July 2024: Patient doing well overall. She was discharged on Saturday, 27 July 2024, on doxycycline. She feels like her pain has improved greatly and there is less drainage. She has been compliant with packing. She has a prescription for doxycycline through Saturday, 01 August 2024. clinic follow-up, 28 Aug 2024: Patient missed several appointments secondary to a family emergency and has not been seen in follow-up for about a month. She reports that she has a persistent wound. There is no drainage but it is still relatively deep. No fevers or chills Current encounter, wound care center, 31 Aug 2024: Doing well overall. Reports that she has been doing the dressing changes at home. Reports that the wound has gotten smaller since her last visit Subjective Subjective Wound care center, 31 Aug 2024: Doing well overall. Reports that she has been doing the dressing changes at home. Reports that the wound has gotten smaller since her last visit Current encounter, wound care center, 07 Sep 2024: Doing well overall. Endorses good dressing changes. Reports that the wound is gotten smaller Objective Data Objective Data Vital Signs: Vital Signs Temp Pulse Resp BP 97.2 F L 86 18 139/92 H 08/31/24 13:12 08/31/24 13:12 08/31/24 13:12 08/31/24 13:12 Weight: 270 lb 3.969 oz Body Mass Index (BMI) 41.1 Charges/Coding Procedures Integumentary 111xxx-113xx: 31879 [place] subq tissue 20 sq cm/< Physical Exam Narrative Periwound less irritated and appears healthy The wound is approximately 0.75 x 0.5 cm and 0.5 cm deep. No fluid collections There is no purulent drainage. There is some fibrinous exudate and biofilm at the base of the wound. Const alert and oriented x3 Debridement Note Debridement Note Wound debrided: Left abdominal wound Laterality: Left Wound Grade/Stage: Stage III Type of Debridement: Excisional debridement Anesthesia Used: 4% Lidocaine Solution Depth: in the subcutaneous layer Percentage of wound debrided: 100 Instrument Used: 7mm curette Tissue Removed: Necrotic fibrinous exudate and biofilm at the wound base Severity: Fat Layer Exposed Amount of bleeding with debridement: Mild Bleeding Controlled with: Compression and gauze Patient tolerated procedure: Patient tolerated procedure well Post-Debridement Measurements and Additional Note: Post-Debridement Measurements/Treatment - Nurse 1 - General Ulcer Assessment Start: 08/31/24 13:12 Freq: Status: Active Protocol: CRISTIAN Activity Type Activity Date Activity User E-sign Co-sign Detail Recorded Client Recorded Date Recorded By Document 08/31/24 13:12 DL [id number] 08/31/24 13:21 DL 08/31/24 13:12 - Today's Visit Information Type of service Initial Visit Arrival Mode Ambulatory Transfer Assistance None Patient Identification Verified (Name & Yes ) Patient Requires Transmission-Based No Precautions Height and Weight Height 5 ft 8 in Weight 270 lb 3.969 oz Weight in Pounds 270.2 lbs Weight Measurement Method Estimated by Patient Body Mass Index (BMI) 41.1 BMI Classification Obese Vital Signs Temperature (97.8 F-99.1 F) 97.2 F L Temperature Source Temporal Pulse Rate (60-100) 86 Pulse Location Monitor Respiratory Rate (12-18) 18 Respiratory rate source Observation Blood Pressure (90/60-120/80) 139/92 H Blood Pressure Mean (mm Hg) 107 Source Monitor Pain Scale: 0-10 Numeric Is Patient Pain Free? Yes Communication Assessment Preferred language Korean Appliance Servicer Required No Able to Read Yes Able to Write Yes Communication Tools None Caregiver Communication Skills No Impairment Impairment Right Hearing Abillity Normal Left Hearing Abillity Normal Visual Assistive Devices Glasses Teaching Assessment Preferences Verbal,Written, Demonstration Is Patient Diabetic Yes Functional Assessment Recent Decline in Ability to Perform Denies Any Declines Culture/Sikh/Retail Administrative Assistant Cultural/Sikh Needs that may affect No Treatment Plan Would you allow our hospital call manager to No meet you for the purpose of spiritual/ emotional support? Retail Administrative Assistant to contact place of restorationism No Teaching: Wound Center Dressing Your Wound -Person Taught Patient *Welcome to the Wound Center -Person Taught Patient WC - Nurse 1 - General Ulcer Measurement Start: 08/31/24 13:12 Freq: Status: Active Protocol: Activity Type Activity Date Activity User E-sign Co-sign Detail Recorded Client Recorded Date Recorded By Document 08/31/24 13:12 DL [id number] 08/31/24 13:21 DL 08/31/24 13:12 Wound Center Nurse 1 #1 ABD -Current Size (cm) - Length 0.5 -Current Size (cm) - Width 1 -Current Size (cm) - Depth 1.5 -Total Square Cm 0.5 -Photo Taken Yes -Exudate Amt Medium -Exudate Type Serosanguineous -Wound Margin Distinct, Outline Attached -Granulation Amt Medium (34-66%) -Granulation Quality Red -Necrosis Amt Medium (34-66%) -Necrotic Tissue Type Adherent Slough -Structure Exposed N/A -Texture (Amara-wound Skin Appearance) Scarring,Rash -Moisture (Amara-wound Skin Appearance) No Abnormality -Color (Amara-wound Skin Appearance) No Abnormality -Temperature (Amara-wound Skin No Abnormality Appearance) (Pt Warm) -Tenderness on Palpation (Amara-wound No Skin Appearance) -Ulcer Cleansing Soap and Water -Foul Odor after Cleansing No -Anesthetic Used 5% Lidocaine Gel WC - Nurse 2 - General Ulcer CM Notes Start: 08/31/24 13:12 Freq: Status: Active Protocol: Activity Type Activity Date Activity User E-sign Co-sign Detail Recorded Client Recorded Date Recorded By Document 08/31/24 13:52 BRENNA [id number] 08/31/24 13:55 JF 08/31/24 13:52 Wound Center Nurse 2 -Time 13:52 -Correct Patient Yes -Correct Side, Site, Position Yes -Correct Procedure Yes -Procedure Performed Yes -Type of Procedure Debridement -Clinical Debridement Subcutaneous -Tissue Removed Subcutaneous -Post Debridement (cm) - Length 1.0 -Post Debridement (cm) - Width 0.5 -Post Debridement (cm) - Depth 2.0 -Total Square (Post) (cm) 0.50 -Area of Debridement (cm) - Length 1.0 -Area of Debridement (cm) - Width 0.5 -Total Square (Area) (cm) 0.50 -Tunneling No -Undermining/Tunneling No -Circular Undermining No -Wound/Ulcer Outcome Not Healed -Ulcer Cleansing Rinsed/ Irrigated with Saline -Foul Odor after Cleansing No -Bioengineered Tissue No -Bleeding Controlled with Pressure -Treatment Response Procedure Tolerated Well -Offloading No -Debridement - Subq, 1st 20sq cm Yes Pain Scale: 0-10 Numeric Is Patient Pain Free? Yes - Nurse 3 - General Ulcer D/C NN Start: 08/31/24 13:12 Freq: Status: Active Protocol: Activity Type Activity Date Activity User E-sign Co-sign Detail Recorded Client Recorded Date Recorded By Document 08/31/24 14:07 DL [id number] 08/31/24 14:08 DL 08/31/24 14:07 Wound Care Center Nurse 3 #1 ABD -Ulcer Cleansing Rinsed/ Irrigated with Saline -Foul Odor after Cleansing No -Primary Dressing Applied Nugauze, Iodoform 1/4in -Primary Dressing Covered/Secured with Dry Gauze, Secured with Tape -Nugauze, Iodoform 1/4 1 Treatment Response Procedure Tolerated Well Pain Scale: 0-10 Numeric Is Patient Pain Free? Yes - Visit Discharge Discharge Condition Stable Ambulatory Status Ambulatory Transportation Private Auto Assessment/Plan Assessment/Plan (1) Wound of abdomen: CODE(S): S31.109A - Unspecified open wound of abdominal wall, unspecified quadrant without penetration into peritoneal cavity, initial encounter PLAN: Continue BID packing changes with iodoform with Tesfaye's Follow-up in 2 weeks at the wound care center Patient happy with the plan
[2024-09-07 08:33] VITALS: BP 152/68; PULSE 87; RESP 18; TEMP 36; BMI 41.1
--- NOTE | 2024-09-08 12:54 | WC ---
ABD 09/07/24
== END 2024-09-19 23:59 | disposition home or self-care (01) ==
LOC: WC 08:30
PROVIDERS: PCP Nurse Practitioner Family; Referring Provider Surgery Plastic and Reconstructive Surgery; Visit Provider Surgery Plastic and Reconstructive Surgery
DX: S31.104A Unspecified open wound of abdominal wall, left lower quadrant without penetration into peritoneal cavity, initial encounter (principal); I11.0 Hypertensive heart disease with heart failure; I50.9 Heart failure, unspecified; E11.9 Type 2 diabetes mellitus without complications; T81.597A Other complications of foreign body accidentally left in body following removal of catheter or packing, initial encounter; Y65.8 Other specified misadventures during surgical and medical care; E78.00 Pure hypercholesterolemia, unspecified; J45.909 Unspecified asthma, uncomplicated; F32.A Depression, unspecified; Z79.899 Other long term (current) drug therapy; Z86.14 Personal history of Methicillin resistant Staphylococcus aureus infection
CPT/HCPCS: 11042; 99214; G0463

== ENCOUNTER 2024-09-21 08:59 | Outpatient (RCR) | payer BC, SELFPAY ==
[2024-09-20 00:23] VITALS: BP 152/68; PULSE 87; RESP 18; TEMP 36; BMI 41.1
[2024-09-21 09:01] VITALS: BP 165/91; PULSE 92; RESP 18; TEMP 36.4; BMI 41.1
--- NOTE | 2024-09-21 11:39 | PN.PCM_ITS ---
History of Present Illness Date of Service: 09/21/24 History of Wound: MARYBEL MCKINNEY is a delightful 54-year-old female who presents with history of type 2 diabetes with A1c of 6.9 who was admitted to the medicine service overnight (23 July 2024) l for eft lower quadrant abdominal cellulitis/abscess. CT scan from yesterday demonstrated isolated cellulitis and she was placed on vancomycin and Zosyn as she was febrile to 100.9 and tachycardic to 103 with a white blood cell count of 20,000. Patient denies any history of trauma to the area but noticed a small pustule forming on Saturday, 20 July 2023, and the pain and swelling around this pustule got worse over the last several days. The pain is sharp and severe and worsened by movements and improved with rest. She is not a smoker. Of note she has a history of hidradenitis 30 July 2024: Patient doing well overall. She was discharged on Saturday, 27 July 2024, on doxycycline. She feels like her pain has improved greatly and there is less drainage. She has been compliant with packing. She has a prescription for doxycycline through Saturday, 01 August 2024. clinic follow-up, 28 Aug 2024: Patient missed several appointments secondary to a family emergency and has not been seen in follow-up for about a month. She reports that she has a persistent wound. There is no drainage but it is still relatively deep. No fevers or chills Subjective Subjective Wound care center, 31 Aug 2024: Doing well overall. Reports that she has been doing the dressing changes at home. Reports that the wound has gotten smaller since her last visit wound care center, 07 Sep 2024: Doing well overall. Endorses good dressing changes. Reports that the wound is gotten smaller Current encounter, 21 September 2024: Doing well overall. Wound is getting smaller. She is happy with result so far Objective Data Objective Data Vital Signs: Vital Signs Temp Pulse Resp BP O2 Del Method 97.5 F L 92 18 165/91 H Room Air 09/21/24 09:01 09/21/24 09:01 09/21/24 09:01 09/21/24 09:01 09/21/24 09:01 Oxygen Delivery Method Room Air Weight: 270 lb 3.969 oz Body Mass Index (BMI) 41.1 Charges/Coding Procedures Integumentary 111xxx-113xx: [id number] [place] subq tissue 20 sq cm/< Physical Exam Narrative Periwound less irritated and appears healthy The wound is approximately 0.5 x 0.5 cm and 0.5 cm deep. No fluid collections. No foreign body There is no purulent drainage. There is some fibrinous exudate and biofilm at the base of the wound. Const alert and oriented x3 Debridement Note Debridement Note Wound debrided: Left lower quadrant abdominal wound Laterality: Left Wound Grade/Stage: Stage III Type of Debridement: Excisional debridement Anesthesia Used: 4% Lidocaine Solution Depth: in the subcutaneous layer Percentage of wound debrided: 100 Instrument Used: 7mm curette Tissue Removed: Fibrinous exudate and necrotic debris from the subcutaneous layer Severity: Fat Layer Exposed Amount of bleeding with debridement: Moderate Bleeding Controlled with: Compression and gauze Patient tolerated procedure: Patient tolerated procedure well Post-Debridement Measurements and Additional Note: Post-Debridement Measurements/Treatment - Nurse 1 - General Ulcer Assessment Start: 09/21/24 09:01 Freq: Status: Active Protocol: CRISTIAN Activity Type Activity Date Activity User E-sign Co-sign Detail Recorded Client Recorded Date Recorded By Document 09/21/24 09:01 ELIDA [id number] 09/21/24 09:06 ELIDA 09/21/24 09:01 - Today's Visit Information Type of service Follow-up Visit (Physician/FILLER SHREDDER ) Arrival Mode Ambulatory Patient Identification Verified (Name & Yes ) Height and Weight Body Mass Index (BMI) 41.1 BMI Classification Obese Vital Signs Temperature (97.8 F-99.1 F) 97.5 F L Temperature Source Temporal Pulse Rate (60-100) 92 Pulse Location Monitor Respiratory Rate (12-18) 18 Respiratory rate source Observation Oxygen Delivery Method Room Air Blood Pressure (90/60-120/80) 165/91 H Blood Pressure Mean (mm Hg) 115 History Since Last Visit- (Skip if this is Patient's initial visit) Have you changed medications since your No last visit? Any new allergies or adverse reactions No Had a fall/change in ADL's that may No increase risk of falls Signs or symptoms of abuse and/or No neglect since last visit Have you been in the hospital since your No last visit? Has dressing in place as prescribed No Has compression in place as prescribed N/A Has offloadiing in place as prescribed N/A Experienced any changes in pain level or No management Pain Scale: 0-10 Numeric Is Patient Pain Free? Yes - Nurse 1 - General Ulcer Measurement Start: 09/21/24 09:01 Freq: Status: Active Protocol: Activity Type Activity Date Activity User E-sign Co-sign Detail Recorded Client Recorded Date Recorded By Document 09/21/24 09:01 ELIDA [id number] 09/21/24 09:06 ELIDA 09/21/24 09:01 Wound Center Nurse 1 #1 ABD -Current Size (cm) - Length 0.3 -Current Size (cm) - Width 0.6 -Current Size (cm) - Depth 0.6 -Total Square Cm 0.18 -Exudate Amt Small -Exudate Type Serosanguineous -Granulation Amt None Present (0 %) -Granulation Quality Red -Slough/Fibrin No -Necrosis Amt None Present (0 %) -Texture (Amara-wound Skin Appearance) Assessed -Moisture (Amara-wound Skin Appearance) Assessed -Color (Amaar-wound Skin Appearance) Assessed -Temperature (Amara-wound Skin No Abnormality Appearance) (Pt Warm) -Tenderness on Palpation (Amara-wound No Skin Appearance) -Ulcer Cleansing Rinsed/ Irrigated with Saline -Anesthetic Used 5% Lidocaine Gel SADIA - Nurse 2 - General Ulcer CM Notes Start: 09/21/24 09:01 Freq: Status: Active Protocol: Activity Type Activity Date Activity User E-sign Co-sign Detail Recorded Client Recorded Date Recorded By Document 09/21/24 09:22 DS [id number] 09/21/24 09:22 DS 09/21/24 09:22 Wound Center Nurse 2 -Time 09:22 -Correct Patient Yes -Correct Side, Site, Position Yes -Correct Procedure Yes -Procedure Performed Yes -Type of Procedure Debridement -Clinical Debridement Subcutaneous -Tissue Removed Subcutaneous -Post Debridement (cm) - Length 0.5 -Post Debridement (cm) - Width 0.5 -Post Debridement (cm) - Depth 0.5 -Total Square (Post) (cm) 0.25 -Area of Debridement (cm) - Length 0.5 -Area of Debridement (cm) - Width 0.5 -Total Square (Area) (cm) 0.25 -Tunneling No -Undermining/Tunneling No -Circular Undermining No -Wound/Ulcer Outcome Not Healed -Ulcer Cleansing Rinsed/ Irrigated with Saline -Foul Odor after Cleansing No -Bioengineered Tissue No -Bleeding Controlled with Pressure -Treatment Response Procedure Tolerated Well -Debridement - Subq, 1st 20sq cm Yes Pain Scale: 0-10 Numeric Is Patient Pain Free? Yes WC - Nurse 3 - General Ulcer D/C NN Start: 09/21/24 09:01 Freq: Status: Active Protocol: Activity Type Activity Date Activity User E-sign Co-sign Detail Recorded Client Recorded Date Recorded By Document 09/21/24 09:35 ML [id number] 09/21/24 09:35 ML 09/21/24 09:35 Wound Care Center Nurse 3 #1 ABD -Ulcer Cleansing Rinsed/ Irrigated with Saline -Other Dressing saline soaked guaze -Primary Dressing Covered/Secured with Secured with Tape Pain Scale: 0-10 Numeric Is Patient Pain Free? Yes Assessment/Plan Assessment/Plan (1) Wound of abdomen: CODE(S): S31.109A - Unspecified open wound of abdominal wall, unspecified quadrant without penetration into peritoneal cavity, initial encounter PLAN: Continue BID packing changes with iodoform with Kimberlyin's Follow-up in 4 weeks at the wound care center Patient happy with the plan
--- NOTE | 2024-09-22 09:45 | WC ---
photo 09/21/24 ABD
== END 2024-10-19 23:59 | disposition home or self-care (01) ==
LOC: WC 08:59
PROVIDERS: PCP Nurse Practitioner Family; Referring Provider Surgery Plastic and Reconstructive Surgery; Visit Provider Surgery Plastic and Reconstructive Surgery
DX: S31.104A Unspecified open wound of abdominal wall, left lower quadrant without penetration into peritoneal cavity, initial encounter (principal); E11.9 Type 2 diabetes mellitus without complications; X58.XXXA Exposure to other specified factors, initial encounter; Z79.899 Other long term (current) drug therapy
CPT/HCPCS: 11042